=== PATIENT | female | born 1945 | race Caucasian/White ===

== ENCOUNTER 2021-09-17 11:47 | Outpatient (REF) | payer BC, SELFPAY ==
[2021-09-17 12:41] LABS: Basophils Absolute Auto 0.05 K/uL (0.00-0.30); Basophils Percent Auto 0.5 % (0.0-3.0); Eosinophils Absolute Auto 0.18 K/uL (0.00-0.50); Eosinophils Percent Auto 1.9 % (0.0-7.0); Hematocrit 36.1 % (33.0-51.0); Hemoglobin* 11.7 gm/dL (12.0-16.0); Immature Granulocytes Abs Auto 0.03 K/uL (0.00-0.30); Lymphocytes Percent Auto 15.7 % (20-44); Mean Corpuscular HGB Conc 32 gm/dL (32-36); Mean Corpuscular Hemoglobin 31 pg (26-34); Mean Corpuscular Volume 94 fL (80-100); Monocytes Percent Auto 4.3 % (0.0-11.0); Neutrophils Percent Auto 77.3 % (42.0-72.0); Platelet Count* 282 K/uL (140-440); RDW Coefficient of Variation % 13.8 % (11.5-15.5); Red Blood Count 3.84 m/uL (4.00-5.20); White Blood Count* 9.71 K/uL (4.50-11.00)
[2021-09-17 12:44] LABS: Slide Review Reflex No
== END 2021-09-17 11:48 | disposition home or self-care (01) ==
LOC: NPINS 11:47
PROVIDERS: PCP Family Medicine; Visit Provider Nurse Practitioner Adult Health
DX: R53.83 Other fatigue (principal)
CPT/HCPCS: 85025

== ENCOUNTER 2021-09-18 09:22 | Outpatient (REF) | payer BC, SELFPAY ==
[2021-09-18 09:39] LABS: Appearance Urine Cloudy (Clear); Bilirubin Urine Negative (Negative); Blood Urine 3+ (Negative); Color Urine Yellow (Yellow); Glucose Urine Negative (Negative); Ketones Urine Negative (Negative); Leukocyte Esterase Urine 3+ (Negative); Nitrite Urine Positive (Negative); Protein Urine Negative (Negative); Specific Gravity Urine 1.015 (1.000-1.030); Urobilinogen Urine 0.2 (0.2-1.0); pH Urine 5.5 (5.0-8.5)
[2021-09-18 10:45] LABS: Bacteria Urine Many; RBC Urine 25-50 (0-2); Squamous Epithelial Cell Urine Moderate (None-Few); WBC Urine >100 (0-5)
== END 2021-09-18 09:23 | disposition home or self-care (01) ==
LOC: NPINS 09:22
PROVIDERS: PCP Family Medicine; Visit Provider Nurse Practitioner Adult Health
DX: R53.83 Other fatigue (principal)
CPT/HCPCS: 81001; 87086; 87186

== ENCOUNTER 2021-10-01 12:31 | Outpatient (REF) | payer BC, SELFPAY ==
[2021-10-01 12:52] LABS: Appearance Urine Slightly Cloudy (Clear); Bilirubin Urine Negative (Negative); Blood Urine 3+ (Negative); Color Urine Red (Yellow); Glucose Urine Negative (Negative); Ketones Urine Negative (Negative); Leukocyte Esterase Urine 3+ (Negative); Nitrite Urine Negative (Negative); Protein Urine 1+ (Negative); Specific Gravity Urine 1.015 (1.000-1.030); Urobilinogen Urine 0.2 (0.2-1.0); pH Urine 6.5 (5.0-8.5)
[2021-10-01 12:54] LABS: Basophils Percent Auto 0.4 % (0.0-3.0); Eosinophils Percent Auto 1.6 % (0.0-7.0); Hematocrit 41.6 % (33.0-51.0); Hemoglobin* 13.2 gm/dL (12.0-16.0); Immature Granulocytes Abs Auto 0.04 K/uL (0.00-0.30); Mean Corpuscular HGB Conc 32 gm/dL (32-36); Mean Corpuscular Hemoglobin 30 pg (26-34); Mean Corpuscular Volume 96 fL (80-100); Monocytes Percent Auto 5.1 % (0.0-11.0); Neutrophils Percent Auto 81.6 % (42.0-72.0); Platelet Count* 290 K/uL (140-440); RDW Coefficient of Variation % 13.7 % (11.5-15.5); Red Blood Count 4.35 m/uL (4.00-5.20); White Blood Count* 13.04 K/uL (4.50-11.00)
[2021-10-01 13:04] LABS: Bacteria Urine Many; RBC Urine >100 (0-2); WBC Urine >100 (0-5)
[2021-10-01 13:06] LABS: Slide Review Reflex No
[2021-10-01 13:09] LABS: Albumin* 3.8 g/dL (3.3-5.0)
[2021-10-01 13:10] LABS: Chloride* 98 mmol/L (96-114); Potassium* 3.4 mmol/L (3.6-5.1); Sodium* 142 mmol/L (135-149)
[2021-10-01 13:12] LABS: Aspartate Amino Transferase* 21 U/L (12-35); Bilirubin Total* 0.4 mg/dL (0.1-1.5); Carbon Dioxide* 34 mmol/L (20-32); Creatinine* 0.8 mg/dL (0.5-1.5); Estimated Glomerular Filt Rate 76 ml/min
[2021-10-01 13:13] LABS: Alanine Aminotransferase* 11 U/L (4-35); Alkaline Phosphatase* 155 U/L (40-150); Blood Urea Nitrogen* 23 mg/dL (7-30); Calcium* 9.2 mg/dL (8.4-10.6); Glucose* 92 mg/dL (60-115); Magnesium* 1.5 mg/dL (1.5-2.6); Total Protein* 7.4 g/dL (6.0-8.3)
== END 2021-10-01 12:32 | disposition home or self-care (01) ==
LOC: NPINS 12:31
PROVIDERS: PCP Family Medicine; Visit Provider Nurse Practitioner Adult Health
DX: F05 Delirium due to known physiological condition (principal)
CPT/HCPCS: 80053; 81001; 83735; 84443; 85025; 87086; 87186

== ENCOUNTER 2022-04-11 23:31 | Outpatient (REF) | payer BC, SELFPAY ==
[2022-04-11 23:57] LABS: Appearance Urine Slightly Cloudy (Clear); Bilirubin Urine Negative (Negative); Blood Urine Trace-intact (Negative); Color Urine Yellow (Yellow); Glucose Urine Negative (Negative); Ketones Urine Negative (Negative); Leukocyte Esterase Urine Trace (Negative); Nitrite Urine Negative (Negative); Protein Urine 1+ (Negative); Specific Gravity Urine 1.015 (1.000-1.030); Urobilinogen Urine 0.2 (0.2-1.0)
[2022-04-12 00:05] LABS: Bacteria Urine Few; RBC Urine 25-50 (0-2); Squamous Epithelial Cell Urine Few (None-Few)
== END 2022-04-11 23:32 | disposition home or self-care (01) ==
LOC: NPINS 23:31
PROVIDERS: PCP Family Medicine; Visit Provider Family Medicine
DX: R33.9 Retention of urine, unspecified (principal)
CPT/HCPCS: 81001; 87086

== ENCOUNTER 2022-05-18 20:27 | Outpatient (REF) | payer BC, SELFPAY ==
[2022-05-19 09:04] LABS: PCR FLU A Negative PCR FLU A (Negative); PCR FLU B Negative PCR FLU B (Negative); SARS PCR* ND (Negative)
== END 2022-05-18 20:28 | disposition home or self-care (01) ==
LOC: LAB 20:27
PROVIDERS: PCP Family Medicine; Visit Provider Nurse Practitioner Adult Health
DX: J10.1 Influenza due to other identified influenza virus with other respiratory manifestations (principal)
CPT/HCPCS: 87631

== ENCOUNTER 2023-04-27 17:52 | Outpatient (REF) | payer BC, SELFPAY ==
[2023-04-27 18:24] LABS: Appearance Urine Clear (Clear); Bilirubin Urine Negative (Negative); Blood Urine 2+ (Negative); Color Urine Yellow (Yellow); Glucose Urine Negative (Negative); Ketones Urine Negative (Negative); Leukocyte Esterase Urine 1+ (Negative); Nitrite Urine Negative (Negative); Protein Urine Negative (Negative); Specific Gravity Urine 1.015 (1.000-1.030); Urobilinogen Urine 0.2 (0.2-1.0)
[2023-04-27 18:38] LABS: RBC Urine 0-2 (0-2)
== END 2023-04-27 17:53 | disposition home or self-care (01) ==
LOC: NPINS 17:52
PROVIDERS: PCP Family Medicine; Visit Provider Family Medicine
DX: R10.2 Pelvic and perineal pain (principal)
CPT/HCPCS: 81001; 87086; 87186

== ENCOUNTER 2023-07-16 13:42 | Outpatient (CLI) | payer BC, SELFPAY ==
--- NOTE | 2023-07-16 14:30 | CRLHL7_ITS ---
For Patients: As a result of the Century Cures Act, medical imaging exams and procedure reports are released immediately into your electronic medical record. You may view this report before your referring provider. If you have questions, please contact your health care provider. INDICATION: Post-laminectomy syndrome. Comparison 03/17/2021. Technique Sagittal T1, T2, and STIR sequences. Axial T1 and T2 weighted sequences. FINDINGS: Degenerative anterolisthesis of L1 on L2 measures approximate 4 mm. Otherwise, normal alignment. No acute fractures. Stable postoperative changes of diskectomy interbody fusion L2-3, L3-4, L4-5 and L5-S1 with posterior wagner and transpedicular screw fixation L2-S1. Stable fluid collection within the posterior soft tissues of the operative bed which likely represents a postop seroma. Stable chronic compression fracture and anterior wedging of the L1 vertebral body. Retropulsion of the posterior inferior corner vertebral body measuring approximately 5 millimeters in the AP dimension Lumbar spondylosis with multilevel disc degeneration facet arthropathy. T11-12: Disc degeneration posterior disc bulge. No narrowing of spinal canal. Spinal canal is decompressed by laminectomy. Facet arthropathy results in mild narrowing of bilateral foramina. T12-L1: Disc degeneration diffuse disc bulge. Mild narrowing of spinal canal. No neural foraminal narrowing. L1-2: Advanced disc degeneration loss disc height. Posterior disc bulge. Moderate narrowing of spinal canal. Mild to moderate narrowing of bilateral foramina. L2-3: Postoperative changes. No spinal canal or neural foraminal narrowing. L3-4: Postop changes. No narrowing of the spinal canal. No neural foraminal narrowing. L4-5: Postoperative changes. No narrowing of spinal canal. No neural foraminal narrowing. L5-S1: Postop changes. No narrowing of spinal canal. Allowing for artifact, there is mild narrowing of bilateral foramina. Degenerative changes of the SI joints. IMPRESSION: 1. Degenerative anterolisthesis of L1 on L2. 2. Otherwise normal alignment. No acute fractures. 3. Stable postoperative changes L2-3 through L5-S1. Stable fluid collection within the posterior soft tissues of the operative bed which likely represents a postoperative seroma. 4. Stable chronic compression fracture of L1 5. Lumbar spondylosis. 6. At T11-12, mild narrowing of the bilateral neural foramina 7. At T12-L1, mild narrowing of the spinal canal 8. At L1-2, moderate narrowing of the spinal canal. [id number] narrowing of the bilateral neural foramina 9. At L5-S1, mild narrowing of the bilateral neural foramina Dictated by Steven Bliss MD @ 07/17/2023 8:46:06 AM (Electronically Signed)
== END 2023-07-16 13:43 | disposition home or self-care (01) ==
PROVIDERS: PCP Family Medicine; Visit Provider Nurse Practitioner Family
DX: M96.1 Postlaminectomy syndrome, not elsewhere classified (principal); M48.56XA Collapsed vertebra, not elsewhere classified, lumbar region, initial encounter for fracture; M47.896 Other spondylosis, lumbar region; M51.24 Other intervertebral disc displacement, thoracic region; M51.25 Other intervertebral disc displacement, thoracolumbar region
CPT/HCPCS: 72148

== ENCOUNTER 2023-09-27 18:12 | Outpatient (REF) | payer BC, SELFPAY ==
[2023-09-27 18:52] LABS: Appearance Urine Clear (Clear); Bilirubin Urine Negative (Negative); Blood Urine 3+ (Negative); Color Urine Yellow (Yellow); Glucose Urine Negative (Negative); Ketones Urine Negative (Negative); Leukocyte Esterase Urine 3+ (Negative); Nitrite Urine Positive (Negative); Protein Urine 1+ (Negative); Urobilinogen Urine 0.2 (0.2-1.0); pH Urine 7.5 (5.0-8.5)
[2023-09-27 19:16] LABS: Bacteria Urine Moderate; WBC Urine 25-50 (0-5)
== END 2023-09-27 18:13 | disposition home or self-care (01) ==
LOC: NPINS 18:12
PROVIDERS: PCP Family Medicine; Visit Provider Nurse Practitioner Gerontology
DX: N39.0 Urinary tract infection, site not specified (principal)
CPT/HCPCS: 81001; 87086; 87186

== ENCOUNTER 2023-10-29 16:48 | Outpatient (REF) | payer BC, SELFPAY ==
[2023-10-29 17:09] LABS: Appearance Urine Clear (Clear); Bilirubin Urine Negative (Negative); Blood Urine 1+ (Negative); Color Urine Yellow (Yellow); Glucose Urine Negative (Negative); Ketones Urine Negative (Negative); Leukocyte Esterase Urine 1+ (Negative); Nitrite Urine Negative (Negative); Protein Urine Negative (Negative); Specific Gravity Urine 1.015 (1.000-1.030); Urobilinogen Urine 0.2 (0.2-1.0)
[2023-10-29 17:40] LABS: WBC Urine 0-2 (0-5)
== END 2023-10-29 16:49 | disposition home or self-care (01) ==
LOC: NPINS 16:48
PROVIDERS: PCP Family Medicine; Visit Provider Nurse Practitioner Gerontology
DX: R10.2 Pelvic and perineal pain (principal)
CPT/HCPCS: 81001; 81003; 87086; 87186

== ENCOUNTER 2023-11-23 12:14 | Outpatient (CLI) | payer BC, SELFPAY | END 2023-11-23 12:15 | disposition home or self-care (01) | LOC: AMB 11-26 01:27 | PROVIDERS: PCP Family Medicine; Visit Provider Emergency Medicine | DX: T83.010A Breakdown (mechanical) of cystostomy catheter, initial encounter (principal) | CPT/HCPCS: A0425; A0428 ==

== ENCOUNTER 2023-11-23 12:42 | Emergency (ER) | payer BC, SELFPAY ==
[2023-11-23 12:53] VITALS: BP 157/74; PULSE 74; RESP 18; TEMP 36.6; O2SAT 98; BMI 37.2
--- NOTE | 2023-11-23 13:11 | ED_ITS ---
HPI - General Adult General Chief complaint: Urogenital Problems, Female Stated complaint: Catheter problem Time Seen by Provider: 11/23/23 12:48 Source: patient Mode of arrival: ambulatory Limitations: no limitations History of Present Illness HPI narrative: 78-year-old female coming in today requesting that her suprapubic catheter be changed. Patient does live in a snf where the nursing staff were alok ble to changes today. She gets it changed monthly. She denies any other concerns today. Patient has a history of spinal stenosis and difficulty with mobility and that is the reason why she has suprapubic catheter in place. She states that has been present for several years and she has not had any issues. Related Data Allergies Allergy/AdvReac Type Severity Reaction Status Date / Time No Known Drug Allergies Allergy Verified 11/23/23 12:53 Review of Systems Status of ROS: Reports: 6 or more systems reviewed and unremarkable except as noted in History and below Exam Narrative: Exam Narrative: Obese, well-developed patient in no acute distress. Alert and oriented. Answers questions appropriately. Mood and affect are appropriate. Thoughts are goal oriented and rational. No tangential or magical thinking noted. Patient speaks in full sentences without needing to catch her breath. She does not appear ill or toxic. HEENT: Normocephalic atraumatic. Pupils are equally round reactive to light. Extraocular muscles are intact. Conjunctivae are moist without any icterus noted. Moist mucous membranes. Abdomen soft and nontender with normal bowel sounds. No guarding rebound. Suprapubic catheter sitting in the entrance. No evidence of infection. Const: Vital Signs, click to edit/add: Vital Signs - 24 hr 11/23/23 12:53 Temperature 97.8 F Pulse Rate [Pulse Oximeter] 74 Respiratory Rate 18 Blood Pressure [Ri ght Upper Arm] 157/74 H Pulse Oximetry 98 Oxygen Delivery Me thod Room Air Course Course ED Course: Nursing staff able to put in in 12 gauge without difficulty. Vital Signs Vital signs: Initial Vital Signs Temperature 97.8 F 11/23/23 12:53 Temperature Source Temporal Artery Scan 11/23/23 12:53 Pulse Rate 74 11/23/23 12:53 Respiratory Rate 18 11/23/23 12:53 Blood Pressure 157/74 H 11/23/23 12:53 Blood Pressure Mean 101 11/23/23 12:53 Pulse Oximetry 98 11/23/23 12:53 Oxygen Delivery Method Room Air 11/23/23 12:53 Vital Signs Temperature 97.8 F 11/23/23 12:53 Pulse Rate 74 11/23/23 12:53 Respiratory Rate 18 11/23/23 12:53 Blood Pressure 157/74 H 11/23/23 12:53 Pulse Oximetry 98 11/23/23 12:53 Oxygen Delivery Method Room Air 11/23/23 12:53 Temperature 97.8 F 11/23/23 12:53 Pulse Rate 74 11/23/23 12:53 Respiratory Rate 18 11/23/23 12:53 Blood Pressure 157/74 H 11/23/23 12:53 Pulse Oximetry 98 11/23/23 12:53 Oxygen Delivery Method Room Air 11/23/23 12:53 Medical Decision Making MDM Narrative Medical decision making narrative: Suprapubic catheter changed today in the ED. Patient will follow-up with Urology for a more proper sized catheter. Discharge Plan Discharge Clinical Impression: Suprapubic catheter dysfunction Patient Disposition: Home w/ Parent or Adult Condition: Improved Additional Instructions: Follow-up with urology team. Follow Up/Referrals: Be John MD [Primary Care Provider] - Stand Alone [facility]: [facility] Inst[facility]
== END 2023-11-23 14:44 | disposition home or self-care (01) ==
PROVIDERS: Emergency Provider Family Medicine; PCP Family Medicine
DX: T83.098A Other mechanical complication of other urinary catheter, initial encounter (principal)
CPT/HCPCS: 51702; 99283; 99284

== ENCOUNTER 2023-11-23 14:37 | Outpatient (CLI) | payer BC, SELFPAY | END 2023-11-23 14:38 | disposition home or self-care (01) | LOC: AMB 11-26 01:32 | PROVIDERS: PCP Family Medicine; Visit Provider Emergency Medicine | DX: R33.9 Retention of urine, unspecified (principal); Z46.6 Encounter for fitting and adjustment of urinary device | CPT/HCPCS: A0425; A0427; A0428 ==

== ENCOUNTER 2024-03-14 16:20 | Outpatient (REF) | payer BC, SELFPAY ==
[2024-03-14 16:35] LABS: Bilirubin Urine Negative (Negative); Blood Urine 3+ (Negative); Glucose Urine Negative (Negative); Ketones Urine Negative (Negative); Leukocyte Esterase Urine 1+ (Negative); Nitrite Urine Negative (Negative); Protein Urine 2+ (Negative); Urobilinogen Urine 0.2 (0.2-1.0); pH Urine 5.5 (5.0-8.5)
[2024-03-14 16:58] LABS: Appearance Urine Clear (Clear); Color Urine Yellow (Yellow)
[2024-03-14 17:26] LABS: Bacteria Urine Moderate; Squamous Epithelial Cell Urine Few (None-Few)
== END 2024-03-14 16:21 | disposition home or self-care (01) ==
LOC: NPINS 16:20
PROVIDERS: PCP Family Medicine; Visit Provider Nurse Practitioner Gerontology
DX: R10.2 Pelvic and perineal pain (principal)
CPT/HCPCS: 81001; 87086

== ENCOUNTER 2024-06-16 10:28 | Outpatient (REF) | payer BC, SELFPAY ==
[2024-06-16 11:17] LABS: Appearance Urine Cloudy (Clear); Bilirubin Urine Negative (Negative); Blood Urine 3+ (Negative); Color Urine Dark yellow (Yellow); Glucose Urine Negative (Negative); Ketones Urine Negative (Negative); Leukocyte Esterase Urine 1+ (Negative); Nitrite Urine Negative (Negative); Protein Urine Trace (Negative); Urobilinogen Urine 0.2 (0.2-1.0)
[2024-06-16 11:33] LABS: Bacteria Urine Moderate; RBC Urine >100 (0-2); Squamous Epithelial Cell Urine Few (None-Few)
== END 2024-06-16 10:29 | disposition home or self-care (01) ==
LOC: NPINS 10:28
PROVIDERS: PCP Family Medicine; Referring Provider Nurse Practitioner Gerontology; Visit Provider Nurse Practitioner Gerontology
DX: R39.82 Chronic bladder pain (principal)
CPT/HCPCS: 81001; 87086

== ENCOUNTER 2024-06-28 15:43 | Outpatient (CLI) | payer BC, SELFPAY | END 2024-06-28 15:44 | disposition home or self-care (01) | LOC: AMB 06-29 09:23 | PROVIDERS: PCP Family Medicine; Visit Provider Emergency Medicine Emergency Medical Services | DX: R44.3 Hallucinations, unspecified (principal); R41.82 Altered mental status, unspecified; R53.1 Weakness; R11.2 Nausea with vomiting, unspecified | CPT/HCPCS: A0425; A0427 ==

== ENCOUNTER 2024-06-28 16:03 | Inpatient (IN) | payer BC, SELFPAY ==
[2024-06-28] VITALS (9 sets, daily range): BP systolic 99–143; BP diastolic 59–103; PULSE 75–88; RESP 12–20; TEMP 36.3–36.6; O2SAT 97–100; BMI 29.7
--- NOTE | 2024-06-28 16:20 | ED.GENADULT ---
HPI - General Adult General Date Seen: 06/28/24 Chief complaint: Unspecified Complaint, Adult Stated complaint: Elevated white blood cell Time Seen by Provider: 06/28/24 16:20 History of Present Illness HPI narrative: 78 yo F brought to the ER today by EMS from her halfway because she has an elevated white count (13). History from the paramedics who brought her in is that she has been sick with nausea and vomiting for the past few days. She has also been a little bit more lethargic and less alert than normal. History from EMS: note that she has been having trouble for the past several days with nausea and vomiting. v History is obtained in part from the patient also supplemented by hers daughter and son-in-law She has a complex past medical history including chronic low back pain on OxyContin and oxycodone. It sounds like because of her lethargy her doctors have taken her off of her OxyContin for the past few days but she still on oxycodone 5-10 mg p.r.n. every 2 hours. She also has chronic spinal stenosis and nerve damage from her spinal problem so she is very weak in her lower extremities and she relies on wheelchair and nursing staff to help her transfer. She also has neurogenic bladder with a chronic indwelling suprapubic catheter. It typically eats changed about once per month and was changed most recently a few weeks ago. She also gets frequent UTIs and her family thinks she was recently on antibiotic for UTI Patient describes at least 3 days for nausea and vomiting with mostly white emesis. No bloody or bilious emesis. She does have chronic diarrhea which is not changed from baseline. No recent constipation. Long with vomiting she is having some generalized abdominal pain. She has also had a bit of a cough for couple of days. No fever. She has been a little bit less active and more confused than normal. Typically which she gets a UTI she gets quite confused and might even be paranoid or hallucinating. She has not been that confused for the past couple of days. She had labs done at her halfway yesterday and she had a white count of 13. She also had a BMP which showed a BUN of 36 and a creatinine of 1.36. Blood sugar was 52 yesterday. She does not have a history of diabetes and does not take insulin. Because she had ongoing lethargy, her halfway center into the ER today. She also has some bed sores on her sacrum. She says that these are open and sore. She is not exactly sure how long they have been there but sounds like they have been present off and on chronically. It does not sound like she has ever needed surgery or debridement for infected bed sores in the past. Previous abdominal surgery includes appendectomy and hysterectomy. She is having abdominal pain and vomiting. Family also notes that she has had about a 50 lb unintentional weight loss over the past few months. Patient says that she just has had a poor appetite and does not want eat. She typically lose is about 2 lb per week. Her doctors have been adjusting her thyroid medications and her diuretics for the past several weeks. Related Data Home Medications ?Medication ?Instructions ?Recorded ?Confirmed acetaminophen 500 mg tablet 1,000 mg PO TID 06/28/24 06/28/24 diclofenac sodium 1 % topical gel 2 g topical QID PRN 06/28/24 06/29/24 duloxetine 60 mg capsule,delayed 60 mg PO DAILY 06/28/24 06/28/24 release gabapentin 300 mg capsule 300 mg PO TID 06/28/24 06/29/24 levothyroxine 112 mcg tablet 112 mcg PO DAILY 06/28/24 06/28/24 (Euthyrox) levothyroxine 150 mcg tablet 150 mcg PO DAILY 06/28/24 06/28/24 oxybutynin chloride 5 mg 5 mg PO DAILY 06/28/24 06/28/24 tablet,extended release 24 hr oxycodone 5 mg tablet 10 mg PO Q6H PRN 06/28/24 06/28/24 pantoprazole 40 mg tablet,delayed 40 mg PO DAILY 06/28/24 06/28/24 release polyethylene glycol 3350 17 17 g PO DAILY 06/28/24 06/28/24 gram/dose oral powder potassium chloride 20 mEq 40 meq PO BID 06/28/24 06/28/24 tablet,extended release sennosides 8.6 mg tablet (senna) 25.8 mg PO BID 06/28/24 06/28/24 torsemide 10 mg tablet 30 mg PO DAILY 06/28/24 06/28/24 triamcinolone acetonide 0.1 % applic topical 06/28/24 topical cream white petrolatum-mineral oil 80 ophthalmic (eye) 06/28/24 %-20 % eye ointment (Soothe Night Time Lubricant) diltiazem HCl 240 mg capsule,24 240 mg PO DAILY 06/29/24 06/29/24 hr,extended release Allergies Allergy/AdvReac Type Severity Reaction Status Date / Time No Known Drug Allergies [facility]ergy Verified 06/28/24 16:19 [facility] Medical History (Updated 06/29/24 @ 14:43 by Robina Leon PA-C) Malnutrition ?E46 - Unspecified protein-calorie malnutrition (ICD-10) Presence of suprapubic catheter ?Z93.59 - Other cystostomy status (ICD-10) Chronic pain ?G89.29 - Other chronic pain (ICD-10) Depression ?F32.A - Depression, unspecified (ICD-10) Spinal stenosis of lumbar region ?M48.061 - Spinal stenosis, lumbar region without neurogenic claudication (ICD-10) Decubitus ulcer of sacral area ?L89.159 - Pressure ulcer of sacral region, unspecified stage (ICD-10) Neurogenic bladder ?N31.9 - Neuromuscular dysfunction of bladder, unspecified (ICD-10) Visual loss ?H54.7 - Unspecified visual loss (ICD-10) Paraplegia ?G82.20 - Paraplegia, unspecified (ICD-10) Surgical History (Updated 06/29/24 @ 07:11 by Yung Diaz MD) History of hysterectomy ?Z90.710 - Acquired absence of both cervix and uterus (ICD-10) Hx of appendectomy ?Z90.49 - Acquired absence of other specified parts of digestive tract (ICD-10) H/O lumbosacral spine surgery ?Z98.890 - Other specified postprocedural states (ICD-10) Social History Narrative: Lives at [address] [place] [address]. Nonambulatory for at least 3 years. Secondary to spinal stenosis. Suprapubic catheter due to neurogenic bladder. Code status is DNR. Daughter Milli manriquez ir is healthcare power of corporate associate attorney. What is your current living situation?: I presently have a place to live Problems where you live: no known problems Problems where you live details: n/a In the past 12 months, utilities in danger of being shut off: no In past 12 months, lack of transportation kept you from medical appts, meetings, work, or getting things needed for daily living: no In the past 12 mos, have been you worried that your food would run out before you had money to buy more?: never true In the past 12 mos, the food you bought just didn't last and you didn't have money to buy more?: never true Highest level of school completed/degree received: high school graduate Smoking Status: Never smoker Do you use any of these nicotine containing products: None How often do you have a drink containing alcohol: never AUDIT-C Alcohol total score: 0 Non-prescribed substance use: denies use Caffeine: No How often does anyone, including family, friends and others, physically hurt you: never How often does anyone, including family, friends and others, insult or talk down to you: never How often does anyone, including family, friends and others, threaten you with harm: never How often does anyone, including family, friends and others, scream or curse at you: never Exam Narrative: Exam Narrative: Primary Survey: A- patent. Speaking clearly. Phonation normal. No stridor. B- breathing easily. Lung sounds clear and equal. Oxygen saturation normal on room air C- no active bleeding. Blood pressure stable. Symmetric pulses and cap refill in 4 extremities. D- alert and oriented x3. GCS 15. No focal deficits. Constitutional: Appears well-developed and well-nourished. Alert. Conversant but somewhat vague historian and often times not completely clear with her history. Her daughter and son-in-law help supplement her history. HENT: Head: Atraumatic. Nose: Nose normal. Mouth/Throat: Oral mucosa is clear but mucous membranes are dry. no trismus. Pharynx normal. Tonsils symmetric. No tonsillar enlargement, erythema, or exudate. Eyes: Conjunctivae normal. EOM normal. Pupils equal, round, and reactive to light. No scleral icterus. Neck: Normal range of motion. Neck supple. No tracheal deviation present. Cardiovascular: Normal rate, regular rhythm. No gallop. No friction rub. No murmur heard. Symmetric radial and PT artery pulses Pulmonary/Chest: Requires assistance to sit up for lung exam. Lungs are clear. Effort normal. No stridor. No respiratory distress. No wheezes. No rales. No rhonchi . No tenderness. Abdominal: Soft. Bowel sounds normal. No distension. No mass. Diffuse tenderness. No rebound. No guarding. Suprapubic catheter. Skin around the catheter looks good. Catheter is draining some fairly clear yellowish urine. Musculoskeletal: RUE: Normal range of motion. No tenderness. No deformity LUE: Normal range of motion. No tenderness. No deformity RLE: Normal range of motion. 2+ edema. No tenderness. No deformity LLE: Normal range of motion. 2+ edema. No tenderness. No deformity Neurological: Alert and oriented to person, place, and date but she is seems little bit confused and is a poor historian. She has 5/5 strength in the upper extremities but is weak in both lower extremities (chronically so). She is barely able to lift either reviewed off the bed. She requires is the sit up because of her chronic weakness and her spinal cord problems. No new focal deficits.. Normal strength. CN II-VII intact. No new sensory deficit. GCS eye subscore is 4. GCS verbal subscore is 5. GCS motor subscore is 6. Normal upper extremity coordination Skin: She does have stage I decubitus ulcers on her sacrum affecting both sides. I do not see any significant surrounding erythema, purulent drainage, malodorous discharge. No signs of any tunneling sores. Skin is warm and dry. Family thinks that she looks a little bit pale or yellow. She has not jaundice. No rash noted. No pallor. Normal capillary refill. Psychiatric: Normal mood. Normal affect. Polite. Const: Vital Signs, click to edit/add: Vital Signs - 24 hr 06/28/24 16:10 Temperature 97.4 F L Pulse Rate [Left P ulse Oximeter] 83 Respiratory Rate 20 Blood Pressure [Ri ght Upper Arm] 113/66 Pulse Oximetry 97 Oxygen Delivery Me thod Room Air Course Vital Signs Vital signs: Initial Vital Signs Temperature 97.4 F L 06/28/24 16:10 Temperature Source Temporal Artery Scan 06/28/24 16:10 Pulse Rate 83 06/28/24 16:10 Pulse Rhythm Regular 06/28/24 16:10 Pulse Strength 3+ Normal 06/28/24 16:10 Respiratory Rate 20 06/28/24 16:10 Blood Pressure 113/66 06/28/24 16:10 Blood Pressure Mean 81 06/28/24 16:10 Blood Pressure Position Sitting 06/28/24 16:10 Pulse Oximetry 97 06/28/24 16:10 Oxygen Delivery Method Room Air 06/28/24 16:10 Vital Signs Temperature 97.4 F L 06/28/24 16:10 Pulse Rate 83 06/28/24 16:10 Respiratory Rate 20 06/28/24 16:10 Blood Pressure 113/66 06/28/24 16:10 Pulse Oximetry 97 06/28/24 16:10 Oxygen Delivery Method Room Air 06/28/24 16:10 Temperature 97.6 F 06/30/24 07:00 Pulse Rate 92 06/30/24 07:00 Respiratory Rate 16 06/30/24 07:00 Blood Pressure 125/60 06/30/24 07:00 Pulse Oximetry 100 06/30/24 07:00 Oxygen Delivery Method Room Air 06/30/24 07:00 Medications Administered Medications: Generic Name Dose Route Start Last Admin Trade Name Cjq PRN Reason Stop Dose Admin Acetaminophen 1,000 mg 06/28/24 22:07 06/30/24 08:55 Acetaminophen 500 Mg Tablet PO 1,000 mg TID REGINA Administration Diltiazem HCl 120 mg 06/29/24 09:00 06/30/24 08:54 Diltiazem 120 Mg Cap.Er.24h PO 120 mg DAILY REGINA Administration Duloxetine HCl 60 mg 06/29/24 09:00 06/30/24 08:54 Duloxetine [address] PO 60 mg DAILY REGINA Administration Gabapentin 300 mg 06/29/24 09:00 06/30/24 08:55 Gabapentin 300 Mg Capsule PO 300 mg DAILY REGINA Administration Lactated Ringer's 1,000 mls @ 125 mls/hr 06/28/24 22:20 06/30/24 02:13 Lactated Ringers 1000 Ml IV 35 mls/hr .Q8H REGINA Administration Ceftriaxone Sodium 1 gm/ 100 mls @ 200 mls/hr 06/30/24 08:15 06/30/24 08:52 Sodium Chloride IVPB 200 mls/hr Q24H REGINA Administration Levothyroxine Sodium 112 mcg 06/29/24 06:30 06/30/24 06:36 Levothyroxine 112 Mcg Tablet PO 112 mcg 0630 REGINA Administration Omeprazole 40 mg 06/29/24 09:00 06/30/24 08:53 Omeprazole [address] PO 40 mg DAILY REGINA Administration Oxybutynin Chloride 5 mg 06/29/24 09:00 06/30/24 08:56 Oxybutynin Chloride 5 Mg Tab.Er.24 PO 5 mg DAILY REGINA Administration Oxycodone HCl 10 mg 06/28/24 21:43 06/29/24 18:33 Oxycodone 5 Mg Tablet PO 5 mg Q6H PRN Administration Oxycodone HCl 10 mg 06/28/24 22:00 06/29/24 21:17 Oxycodone (Cr) 10 Mg Tab.Er.12h PO 10 mg Q12H REGINA Administration Polyethylene Glycol 17 gm 06/29/24 09:00 06/30/24 08:56 Polyethylene Glycol 3350 17 Gm Pack PO Not Given DAILY REGINA Sennosides 3 tab 06/28/24 22:12 06/30/24 08:57 Sennosides 1 Tab Tablet PO Not Given BID REGINA Sodium Chloride 5 ml 06/29/24 09:00 06/30/24 08:57 Sodium Chloride 0.9 % (Flush) 10 Ml Syringe IVF 5 ml BID REGINA Administration Discontinued Medications Generic Name Dose Route Start Last Admin Trade Name Freq PRN Reason Stop Dose Admin Bupivacaine HCl 30 ml 06/29/24 15:29 06/29/24 13:44 Bupivacaine 0.25% 30 Ml INJECTION 06/29/24 15:30 15 ml ONCE ONE Administration Cefazolin Sodium 0 gm 06/29/24 13:30 06/29/24 13:30 Cefazolin 1 Gm Inj IVP 06/29/24 13:31 1 gm ONCE ONE Administration Enoxaparin Sodium 30 mg 06/28/24 21:32 06/28/24 22:42 Enoxaparin 30 Mg/0.3ml Inj SUBCUT 06/28/24 21:33 Not Given ONCE ONE Sodium Chloride 1,000 mls @ 1,000 mls/hr 06/28/24 17:00 06/28/24 18:32 0.9 % Sodium Chloride 1000 Ml IV 06/28/24 17:59 Infused .Q1H REGINA Infusion Ceftriaxone Sodium 1 gm/ 100 mls @ 200 mls/hr 06/28/24 19:03 06/28/24 20:20 Sodium Chloride IVPB 06/28/24 19:04 Infused ONCE ONE Infusion Piperacillin Sod/Tazobactam 100 mls @ 200 mls/hr 06/28/24 19:45 06/28/24 20:19 Sod 4.5 gm/ Sodium Chloride IVPB 200 mls/hr Q6H REGINA Administration Lactated Ringer's 1,000 mls @ 1,000 mls/hr 06/28/24 20:19 06/28/24 23:40 Lactated Ringers 1000 Ml IV 06/28/24 21:18 Infused .Q1H ONE Infusion Piperacillin Sod/Tazobactam 100 mls @ 200 mls/hr 06/29/24 02:00 06/29/24 10:50 Sod 2.25 gm/ Sodium Chloride IVPB Infused Q6H REGINA Infusion Iopamidol 50 ml 06/29/24 15:29 06/29/24 14:10 Iopamidol 50 Ml Vial INJECTION 06/29/24 15:30 10 ml ONCE ONE Administration Lidocaine HCl 6 ml 06/28/24 16:50 06/28/24 17:31 Lidocaine Hcl 2 % Jelly (Top) Sterile UR 6 ml ONCE PRN Administration Lidocaine/Epinephrine 20 ml 06/29/24 15:29 06/29/24 13:44 Lidocaine 1%-Epi 1:100,000 INFILTRATI 06/29/24 15:30 15 ml ONCE ONE Administration Sodium Chloride 50 ml 06/29/24 15:29 06/29/24 14:10 0.9% Sodium Chl 50 Ml Vial INJECTION 06/29/24 15:30 10 ml ONCE ONE Administration Medical Decision Making MDM Narrative Medical decision making narrative: Pleasant 78-year-old female brought to the ER today by EMS from her halfway because she has been vomiting for the past couple of days and has a little bit more lethargic than normal. She had a white count of 13 on labs yesterday so suspicion is possible infection. 1. Infectious Disease: Patient had a white count of 13 yesterday. She is not febrile, tachycardic. Lactic is normal. Although she does have UTI, no definitive evidence for sepsis for septic shock yet. Labs today here in the ER confirm white count elevated and up to 14 today. We undertook an evaluation for sources of infection. Blood cultures are drawn and pending. We changed her suprapubic catheter to get the most sterile possible sample. Urinalysis shows 10-25 WBC, 5-10 RBC, 3+ leukocyte esterase and many bacteria. I think this could be consistent with possible acute UTI. Based on most recent urine culture from 06/16/2024 which grew E coli. Please see the lab results from to get full sensitivity data. Will start the patient on Rocephin for UTI. She does have some superficial stage I decubitus ulcers on her sacrum but these do not appear to be actively infected her surrounded by cellulitis. I do not see any sign of abscess or necrotizing infection there. She has had of a report of a recent cough. She is not coughing here in the ER and is not hypoxic. She had a COVID/i influenza swab a couple of days ago that was negative. Chest x-ray today is negative by my read. 2. She is having vomiting for the past few days and also abdominal pain. She is significantly tender, predominantly in in the upper abdomen but also in the left side. She has had previous appendectomy and hysterectomy. Differential here is broad including cholecystitis, choledocholithiasis, pancreatitis, diverticulitis, colitis, bowel obstruction, intra-abdominal abscess, kidney stone, pyelonephritis among others.. Laboratory workup shows white count of 14. Total bilirubin is normal at 1.1. AST is mildly abnormal at 50 (previously was 21 in 2021). ALT is normal at 26. Alk-phos is elevated to 226 (previously was 150 in 2021). Lipase is elevated to 411 CT scan shows distension of the gallbladder but no definite other signs of for cholecystitis such as wall thickening, pericholecystic fluid. CT scan also shows possible splenic infarcts. CT scan also shows wall thickening of the rectosigmoid colon which may reflect mild colitis. Will add on C diff and stool culture and broaden antibiotics. 3. With vomiting and confusion, head CT is obtained and shows no acute abnormality. 4. Renal. She has been vomiting for the past few days. Labs show BUN elevated at 34 and creatinine up to 1.7 today. Prior creatinine from 2021 was normal at 0.8. Suspect this acute kidney injuries probably due to dehydration. 5. Hematologic. She has mild anemia with hemoglobin 11.8. No report of any recent bleeding. Lab Data Labs: Lab Results 06/28/24 06/28/24 06/28/24 Range/Units 16:52 17:22 21:26 WBC 14.06 H (4.50-11.00) K/uL RBC 3.54 L (4.00-5.20) m/uL Hgb 11.8 L (12.0-16.0) gm/dL Hct 35.9 (33.0-51.0) % MCV 101 H (80-100) fL MCH 33 (26-34) pg MCHC 33 (32-36) gm/dL RDW Coeff of Marlene 14.5 (11.5-15.5) % Plt Count 149 (140-440) K/uL Neut % (Auto) 79.0 H (42.0-72.0) % Lymph % (Auto) 12.5 L (20-44) % Mayes % (Auto) 7.0 (0.0-11.0) % Eos % (Auto) 0.3 (0.0-7.0) % Baso % (Auto) 0.4 (0.0-3.0) % Neut # (Auto) 11.10 H (1.7-7.0) K/uL Lymph # (Auto) 1.80 (0.90-2.90) K/uL Mayes # (Auto) 1.00 H (0.00-0.90) K/UL Eos # (Auto) 0.00 (0.00-0.50) K/uL Baso # (Auto) 0.10 (0.00-0.30) K/uL Abs Immat Gran (auto) 0.10 (0.00-0.30) K/uL Imm/Tot Granulo (auto) 0.8 % Sodium 135 (135-149) mmol/L Potassium 4.6 (3.6-5.1) mmol/L Chloride 104 (96-114) mmol/L Carbon Dioxide 19 L (20-32) mmol/L Anion Gap 12 (7-15) mEq/L BUN 34 H (7-30) mg/dL Creatinine 1.7 H (0.5-1.5) mg/dL Estimated Creat Clear 19.59 Estimated GFR 31 ml/min Glucose 81 (60-115) mg/dL Lactate 1.5 (0.5-1.9) mmol/L Calcium 9.1 (8.4-10.6) mg/dL Magnesium 1.9 (1.5-2.6) mg/dL Total Bilirubin 1.0 (0.1-1.5) mg/dL Direct Bilirubin 0.7 H (0.0-0.5) mg/dL AST 50 H (12-35) U/L ALT 26 (4-35) U/L Alkaline Phosphatase 226 H (40-150) U/L C-Reactive Protein 1.2 H (0.5-1.0) mg/dL Total Protein 6.6 (6.0-8.3) g/dL Albumin 3.4 (3.3-5.0) g/dL Lipase 411 H (23-300) U/L TSH 0.099 L (0.270-4.200) uIU/mL Free T4 2.43 H (0.70-1.85) ng/dL Urine Color Yellow (Yellow) Urine Appearance Clear (Clear) Urine pH 5.5 (5.0-8.5) Ur Specific [place] 1.025 (1.000-1.030) Urine Protein 1+ A (Negative) Urine Glucose (UA) Negative (Negative) Urine Ketones Negative (Negative) Urine Blood 3+ A (Negative) Urine Nitrite Negative (Negative) Urine Bilirubin Negative (Negative) Urine Urobilinogen 0.2 (0.2-1.0) Ur Leukocyte Esterase 3+ A (Negative) Urine RBC 5-10 A (0-2) Urine WBC 10-25 A (0-5) Ur Squamous Epith Cells Few (None-Few) Urine Bacteria Many A (None) Stl C. diff Tox B Gene Negative (Negative) Stl C. diff [id number] PRESUMPTIVE NEGATIVE (Negative) Imaging Data CT scan - head: Attestation: I have reviewed the pertinent imaging results. Radiologist's impression: IMPRESSION: 1. No acute intracranial abnormality. 2. Moderate generalized volume loss. Chronic deep white matter small vessel ischemic changes Chest x-ray: Attestation: I have reviewed the pertinent imaging results. Radiologist's impression: IMPRESSION: No evidence of an acute pulmonary process. CT scan - abdomen: Attestation: I have reviewed the pertinent imaging results. Radiologist's impression: IMPRESSION: 1. Small areas of wedge-shaped subcapsular hypoenhancement of the spleen, worrisome for small splenic infarcts. 2. Distended gallbladder. No significant pericholecystic fluid. Correlate clinically for any signs/symptoms of early acute cholecystitis. 3. Mild wall thickening of the rectosigmoid colon, may reflect mild colitis. Recommend correlation with routine colonoscopy/any recent colonoscopy results. 4. Additional incidental findings as above. ECG Data Attestation: I personally reviewed and interpreted this ECG as follows: Interpretation: Normal sinus rhythm with first-degree AV block Rate: 77 NJ: 260 QRS axis: Normal axis. Q-waves in leads V1, V2, lead 3, lead AVF ST segment/T wave: No ST segment elevation or depression. Nonspecific T-wave flattening in all leads. Artifact in lead V5. QTc: 407 Discharge Plan Discharge Clinical Impression: Vomiting, Acute kidney injury, Urinary tract infection, Infarction of spleen, Colitis, Abnormal serum level of lipase Patient Disposition: Admitted As Observation
--- NOTE | 2024-06-28 16:51 | CRLHL7_ITS ---
For Patients: As a result of the Cures Act, medical imaging exams and procedure reports are released immediately into your electronic medical record. You may view this report before your referring provider. If you have questions, please contact your health care provider. INDICATION: Vomiting, lethargy. TECHNIQUE: Chest 2 views. COMPARISON: None. FINDINGS: Cardiovascular and mediastinum: Heart size and vasculature are normal in caliber and appearance. Lungs and pleural spaces: No focal consolidation, pleural effusion, or pneumothorax. Bones and soft tissues: Partially imaged spinal fusion in the lumbar spine. 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 IMPRESSION: No evidence of an acute pulmonary process. Dictated by Fermin Lopez MD @ 06/28/2024 7:03:15 PM (Electronically Signed)
--- NOTE | 2024-06-28 16:51 | CRLHL7_ITS ---
For Patients: As a result of the Century Cures Act, medical imaging exams and procedure reports are released immediately into your electronic medical record. You may view this report before your referring provider. If you have questions, please contact your health care provider. INDICATION: Abdominal pain, vomiting, leukocytosis. TECHNIQUE: CT abdomen and pelvis acquired with 75 mL Isovue 370 IV contrast. COMPARISON: None available. FINDINGS: Lower chest: No focal consolidation. Liver: Diffuse hepatic steatosis. No suspicious focal hepatic lesion. Gallbladder and bile ducts: Hydropic gallbladder. No calcified gallstones. No significant pericholecystic fluid. Pancreas: Unremarkable. Spleen: Small areas of wedge-shaped subcapsular hypoenhancement. Adrenal glands: Unremarkable. Kidneys: Kidneys enhance symmetrically, without hydronephrosis. Too small to characterize hypodense bilateral renal lesions. Retroperitoneum: No lymphadenopathy. Bowel and mesentery: Bowel is not obstructed. No significant ascites, no pneumoperitoneum. Mild wall thickening of the rectosigmoid colon. Moderate-sized hiatal hernia. Bladder: Decompressed, in the presence of a suprapubic catheter. Reproductive organs: Post hysterectomy. Pelvic lymph nodes: No lymphadenopathy. Vessels: Extensive calcified and noncalcified atherosclerotic plaque throughout the abdominal aorta. Abdominal wall: No acute abdominal wall abnormality. Bones: Severe multilevel degenerative changes of the spine. Bones are diffusely osteopenic. Right hip arthroplasty. Postsurgical changes of the lumbar spine. IMPRESSION: 1. Small areas of wedge-shaped subcapsular hypoenhancement of the spleen, worrisome for small splenic infarcts. 2. Distended gallbladder. No significant pericholecystic fluid. Correlate clinically for any signs/symptoms of early acute cholecystitis. 3. Mild wall thickening of the rectosigmoid colon, may reflect mild colitis. Recommend correlation with routine colonoscopy/any recent colonoscopy results. 4. Additional incidental findings as above. Please note that all CT scans at this facility use dose modulation, iterative reconstruction, and/or weight-based dosing when appropriate to reduce radiation dose to as low as reasonably achievable. Dictated by Dulce Tuttle MD @ 06/28/2024 7:23:59 PM (Electronically Signed)
--- NOTE | 2024-06-28 16:51 | CRLHL7_ITS ---
For Patients: As a result of the Century Cures Act, medical imaging exams and procedure reports are released immediately into your electronic medical record. You may view this report before your referring provider. If you have questions, please contact your health care provider. INDICATION: Headache. Leukocytosis. Comparison 02/20/2021. TECHNIQUE: Noncontrast CT head. FINDINGS: Moderate generalized volume loss. Patchy low-attenuation change within the white matter consistent with chronic deep white matter small ischemic changes. Benign calcification the bilobed basal ganglia. No intracranial hemorrhage. No acute infarct. No midline shift. No abnormal ventricular dilatation. Normal calvarium and skull base. Visualized paranasal sinuses mastoid air cells are clear. Normal orbits bilaterally. IMPRESSION: 1. No acute intracranial abnormality. 2. Moderate generalized volume loss. Chronic deep white matter small vessel ischemic changes Please note that all CT scans at this facility use dose modulation, iterative reconstruction, and/or weight-based dosing when appropriate to reduce radiation dose to as low as reasonably achievable. Dictated by Steven Bliss MD @ 06/28/2024 7:03:34 PM (Electronically Signed)
[2024-06-28] MEDS: 0.9 % SODIUM CHLORIDE 1000 ml 1,000 ML IV (17:09)
--- OUTSIDE RECORDS SUMMARY | 2024-06-28 17:13 | XMS_ITS | Clinical Summary ---
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 For routine questions regarding patient records, call [phone] during business hours, M-F 8:00 AM - 5:00 PM Central Time. Record requests for emergency care only can be directed to [phone] at any time.[facility] Allergies No known active allergies Medications dilTIAZem CD (CARDIZEM CD/CARTIA XT) 240 mg 24 hr capsule Take 1 capsule (240 mg total) by mouth daily. 2 Active ezetimibe (ZETIA) 10 mg tablet Take 1 tablet (10 mg total) by mouth daily. 2 Active Additional Information Patient not taking.Reported on 12/21/2023 hydroCHLOROthi azide (HYDRODIURIL) 25 mg tablet Take 1 tablet (25 mg total) by mouth daily. 2 Active Additional Information Patient not taking.Reported on 12/21/2023 pantoprazole (PROTONIX) 40 mg EC tablet Take 1 tablet (40 mg total) by mouth daily. 2 Active atorvastatin (LIPITOR) 20 mg tablet Take 1 tablet (20 mg total) by mouth at bedtime. 2 Active Additional Information Patient not taking.Reported on 12/21/2023 acetaminophen (TYLENOL) 500 mg tablet Take 2 tablets (1,000 mg total) by mouth every 6 (six) hours as needed for mild pain or score 1-3 of 10 or headaches. 2 Active calcium carbonate (TUMS) 500 mg (200 mg calcium) chewable tablet Chew 2 tablets (400 mg of calcium total) every 4 (four) hours as needed for heartburn or indigestion. 2 Active carboxymethylc ellulose (REFRESH PLUS) 0.5 % ophthalmic solution Administer 1 drop into both eyes 4 (four) times a day as needed for dry eyes. 2 Active diclofenac sodium (VOLTAREN) 1 % gel Apply 2 g topically 4 (four) times a day as needed (hand joint pain). Apply to sore muscles 2 Active docusate sodium-benzoca ine (ENEMEEZ PLUS) 283-20 mg/5 mL enema Insert 1 enema into the rectum at bedtime. 2 Active enoxaparin (LOVENOX) 40 mg/0.4 mL injection Inject 0.4 mL (40 mg total) under the skin daily. 2 Active Additional Information Patient not taking.Reported on 12/21/2023 lidocaine (LIDODERM) 5 % Place 1 patch on the skin daily as needed (Discomfort). Apply to sore muscles/joints 2 Active lidocaine (LC-5) 5 % rectal cream Apply 1 application topically as needed for hemorrhoids. Apply to hemorrhoids as needed 0 2 Active melatonin 5 mg tablet Take 1 tablet (5 mg total) by mouth at bedtime as needed (sleep). 0 2 Active Additional Information Patient not taking.Reported on 12/21/2023 polyethylene glycol (MIRALAX) 17 gram powder packet Take 1 packet (17 g total) by mouth daily. Dissolve each 17 g dose in 240 mLs (8 ounces) of beverage. 2 Active gabapentin (NEURONTIN) 300 mg capsule Take 1 capsule (300 mg total) by mouth 3 (three) times a day. Chronic pains (leg) 2 Active lidocaine (LIDODERM) 5 % Place 1 patch on the skin daily as needed (Discomfort). Apply to leg pain. 2 Active levothyroxine (SYNTHROID, LEVOTHROID) 100 mcg tablet Take 1 tablet (100 mcg total) by mouth daily. Hypothyroidism 2 Active Additional Information Patient taking differently:100 mcg oral Daily,Taking 150 mcg, Reported on 12/21/2023 oxyCODONE (ROXICODONE) 5 mg immediate release tabletIndicati ons:Prolonged Acute Pain/Traumatic Injury Take 1 tablet (5 mg total) by mouth at bedtime as needed for severe pain or score 7-10 of 10 Indication: Prolonged Acute Pain/Traumatic Injury. 20 tablet 2 Active potassium chloride (K-TAB) 20 mEq CR tablet Take 1 tablet (20 mEq total) by mouth daily with breakfast. Low potassium. Do not crush or chew. 30 tablet 2 Active atorvastatin (LIPITOR) 20 mg tablet Take 1 tablet (20 mg total) by mouth at bedtime. Cardiovascular health 2 Active Additional Information Patient not taking.Reported on 12/21/2023 magnesium oxide (MAG-OX) 400 mg (241.3 mg magnesium) tablet Take 1 tablet (400 mg total) by mouth 2 (two) times a day before breakfast and dinner. For Low Magnesium 2 Active Additional Information Patient not taking.Reported on 12/21/2023 DULoxetine (CYMBALTA) [address] capsule Take 1 capsule (60 mg total) by mouth daily. For depression and chronic pain 2 Active diazePAM (VALIUM) 2 mg tablet Take 2 tablets (4 mg total) by mouth at bedtime as needed for anxiety or muscle spasms (spasticity). 20 tablet 2 Active Additional Information Patient not taking.Reported on 12/21/2023 sennosides (senna) 8.6 mg tablet Take 8.6 mg by mouth as needed for constipation. Active bacitracin 500 unit/gram ointment Apply 1 Application topically 2 (two) times a day. Apply to affected area. Active oxyBUTYnin (Ditropan) 5 mg tablet Take 5 mg by mouth 3 (three) times a day. Active ondansetron (Zofran) 4 mg tablet Take 4 mg by mouth every 8 (eight) hours as needed for nausea or vomiting. Active torsemide (Demadex) 20 mg tablet Take 20 mg by mouth daily. Active Active Problems Problem Noted Date Diagnosed Date Neurogenic Bladder 04/21/2021 Neurogenic Bowel 04/21/2021 Paraplegia Incomplete 03/21/2021 Stenosis Spinal Cervical 03/18/2021 Opioid Use Unspecified Uncomplicated 03/18/2021 Hypertension Essential Primary 03/18/2021 Neuropathy Peripheral 03/18/2021 Stenosis Spinal Lumbar With Neurogenic Claudicat ion 03/18/2021 Incontinence Urinary 03/18/2021 Loss Visual 03/18/2021 Abnormal Gait Non Orthopedic 03/18/2021 History Of Falling 03/18/2021 Chronic Kidney Disease (CKD) , Stage 3b Glomerular Filtration Rate (GFR) 30 To 44 03/18/2021 Gastroesophageal Reflux Disease NOS 03/18/2021 Hyperlipidemia On Treatment 03/18/2021 Obesity Body Mass Index 30-39.9 Adult 03/18/2021 Osteoporosis 03/18/2021 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 03/18/2021 Stenosis Spinal Thoracic 03/18/2021 Retention Urinary 03/18/2021 Hypothyroidism Primary 03/18/2021 Weakness Leg 03/17/2021 Resolved Problems Problem Noted Date Diagnosed Date Resolved Date Post Operative Nausea/Vomiting 04/10/2021 04/28/2021 Pain Low Back Chronic 03/18/20212021 Hysterectomy Status Post 03/18/2021 Urinary Tract Infection Site Not Specified 03/18/2021 03/18/2021 Appendectomy Status Post 03/18/2021 Decline Functional Status 03/18/2021 Anemia 03/18/2021 04/28/2021 Preoperative Exam 03/18/2021 04/28/2021 Immunizations Immunization Administration Dates Next Due HZV (ZOSTAVAX) 01/26/2012 Influenza, Seasonal, Injectable 01/26/2012,12/24 influenza trivalent high dose (HD)(PF) 3 Social History Tobacco Use Types Packs/Day Years Used Date Smoking Tobacco: Never Smokeless Tobacco: Never Tobacco Cessation:Counseling Given: Not Answered Dental Answer Date Recorded Dental: Regular Dentist Unknown 03/17/19 22 Comments No Sex and Gender Information Value Date Recorded Sex Assigned at Not on file 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 Gender Identity Not on file Sexual Orientation Not on file Last Filed Vital Signs Vital Sign Reading Time Taken Comments Blood Pressure 115/70 06/05/2021 11:13 AM CDT Pulse 86 06/05/2021 11:13 AM CDT Temperature 36.3 C (97.3 F) 06/05/2021 11:13 AM CDT Respiratory Rate 18 06/05/2021 11:1 3 AM CDT Oxygen Saturation 98% 06/05/2021 11: 13 AM CDT Inhaled Oxygen Concentration - - Weight 74.3 kg (163 lb 12.8 oz) 06/05/2021 5:21 AM CDT Height 154.9 cm (5' 0.98) 04/28/2021 1:30 PM CD T Body Mass Index 30.97 04/28/2021 1:30 PM CDT Plan of Treatment Health Maintenance Due Date Last Done Comments Hepatitis C Screening 1945 Office Visit for Blood Pressure Check / Re-check 1945 DTaP,Tdap,and Td Vaccines (1 - Tdap) 1964 Hepatitis A Vaccines (1 of 2 - Risk 2-dose series) 1964 Pneumococcal vaccine (50+ years) (1 of 1 - PCV) 07/09/1995 Hepatitis B Vaccines (1 of 3 - Risk 3-dose series) 2005 Zoster Vaccines (2 of 3) 03/22/2012 01/26/2012 Thyroid Stimulating Hormone (TSH) test for thyroid function 05/28/2022 05/28/2021, 04/13/2021 Creatinine Level (Kidney Function Test) 06/05/2022 06/05/2021, 06/04/2021, 05/25/2021, Additional history exists Potassium Level 06/05/2022 06/05/2021, 05/17, 05/25/2021, Additional history exists Sodium Level 06/05/2022 06/05/2021, 042 , 05/25/2021, Additional history exists Depression Screening (Annual PHQ-2) 02/16/2024 Fall Risk Screen (Annual) 02/16/2024 COVID-19 Vaccine ( season) 2024 12/10/2023, 06/15/2023, 12/08/2022, Additional history exists Influenza Vaccine Completed 12/10/2023, , 11/26/2021, Additional history exists RSV vaccine - (32-36 weeks) or 60+ years Completed 12/10/2023 IPV Vaccines Aged Out No longer eligi ble based on patient's age to complete this topic Procedures Procedure Name Priority Date/Time Associated Diagnosis Comments BASIC METABOLIC PANEL, S/P Routine 06/05/2021 6:28 AM CDT THYROID-STIMULATING HORMONE-SENSITIVE (S-TSH) Routine 05/28/2021 6:30 AM CDT from Last 3 Months or Most Recently Relevant to Health Maintenance Results * (ABNORMAL) Basic Metabolic Panel (06/05/2021 6:28 AM CDT) Potassium, P 4.0 3.6 - 5.2 mmol/L 06/05/2021 6:53 AM CDT NPRG Sodium, P 141 135 - 145 mmol/L 06/05/2021 6:53 AM CDT NPRG Chloride, P 99 98 - 107 mmol/L 06/05/2021 6:53 AM CDT NPRG Bicarbonate, P 32(H) 22 - 29 mmol/L 06/05/2021 6:53 AM CDT NPRG Anion Gap, P 10 7 - 15 06/05/2021 6:53 AM CDT NPRG BUN (Blood Urea Nitrogen), P 30(H) 6 - 21 mg/dL 06/05/2021 6:53 AM CDT NPRG Creatinine 0.78 0.59 - 1.04 mg/dL 06/05/2021 6:53 AM CDT NPRG eGFR-Black/Afri can Syrian 86 >=60 mL/min/BSA 06/05/2021 6:53 AM CDT NPRG Comment: ----ADDITIONAL INFORMATION---- Estimated GFR calculated using the 2009 CKD_EPI creatinine equation. eGFR Non-Black/Afric an Syrian 75 >=60 mL/min/BSA 06/05/2021 6:53 AM CDT NPRG Comment: ----ADDITIONAL INFORMATION---- Estimated GFR calculated using the 2009 CKD_EPI creatinine equation. Calcium, Total, P 9.5 8.8 - 10.2 mg/dL 06/05/2021 6:53 AM CDT NPRG Glucose, P 218(H) 70 - 140 mg/dL 06/05/2021 6:53 AM CDT NPRG Blood (Blood, Venous) 06/05/2021 6:28 AM CDT 06/05/2021 6:32 AM CDT us Shawna Juares M.D. LAB BLOOD ADD-ON Final R esult [facility] [address] [place] [address], [facility] NPRG [place] [address] [place] [address] * (ABNORMAL) S-TSH (Thyroid-Stimulating Hormone - Sensitive) (05/28/2021 6:30 AM CDT) TSH, Sensitive 6.7(H) 0.3 - 4.2 mIU/L 05/28/2021 7:22 AM CDT NPRG Blood (Blood, Venous) 05/28/2021 6:30 AM CDT 05/28/2021 6:51 AM CDT us Soto Grider M.D. LAB BLOOD ADD-ON Final Result Performing Organization Address City/[facility]/ZIP Co de Phone Number [facility] [address] [place] [address], [facility] NPRG [place] [address] [place] [address] from Last 3 Months or Most Recently Relevant to Health Maintenance Insurance [facility] Advance Directives For more information, please contact: [phone] * DNR/DNI (Latest Code Status on File) Date Activated Date Inactivated Comments 04/21/2021 2:19 PM 06/05/2021 1:37 PM * DNR/DNI Date Activated Date Inactivated Comments 04/10/2021 1:03 PM 04/21/2021 12:06 PM * Full Code Date Activated Date Inactivated Comments 04/10/2021 11:49 AM 04/10/2021 1:03 PM Question Answer Comments Full Code: Discussed * DNR/DNI Date Activated Date Inactivated Comments 04/10/2021 6:51 AM 04/10/2021 11:49 AM * Full Code Date Activated Date Inactivated Comments 03/21/2021 3:27 PM 04/10/2021 6:51 AM Question Answer Comments Full Code: Discussed 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
[2024-06-28 17:27] LABS: Lactate* 1.5 mmol/L (0.5-1.9)
[2024-06-28 17:30] LABS: Basophils Percent Auto 0.4 % (0.0-3.0); Eosinophils Percent Auto 0.3 % (0.0-7.0); Hematocrit 35.9 % (33.0-51.0); Hemoglobin* 11.8 gm/dL (12.0-16.0); Immature Granulocytes Pct Auto 0.8 %; Lymphocytes Percent Auto 12.5 % (20-44); Mean Corpuscular HGB Conc 33 gm/dL (32-36); Mean Corpuscular Hemoglobin 33 pg (26-34); Mean Corpuscular Volume 101 fL (80-100); Platelet Count* 149 K/uL (140-440); RDW Coefficient of Variation % 14.5 % (11.5-15.5); Red Blood Count 3.54 m/uL (4.00-5.20); White Blood Count* 14.06 K/uL (4.50-11.00)
[2024-06-28] MEDS: lidocaine HCL 2 % JELLY (TOP) STERILE 6 ML UR (17:31)
[2024-06-28 17:34] LABS: Slide Review Reflex No
[2024-06-28 17:59] LABS: Appearance Urine Clear (Clear); Bilirubin Urine Negative (Negative); Blood Urine 3+ (Negative); Color Urine Yellow (Yellow); Glucose Urine Negative (Negative); Ketones Urine Negative (Negative); Leukocyte Esterase Urine 3+ (Negative); Nitrite Urine Negative (Negative); Protein Urine 1+ (Negative); Specific Gravity Urine 1.025 (1.000-1.030); Urobilinogen Urine 0.2 (0.2-1.0); pH Urine 5.5 (5.0-8.5)
[2024-06-28 18:05] LABS: Albumin* 3.4 g/dL (3.3-5.0); Chloride* 104 mmol/L (96-114); Sodium* 135 mmol/L (135-149)
[2024-06-28 18:06] LABS: Potassium* 4.6 mmol/L (3.6-5.1)
[2024-06-28 18:08] LABS: Alanine Aminotransferase* 26 U/L (4-35); Aspartate Amino Transferase* 50 U/L (12-35); Blood Urea Nitrogen* 34 mg/dL (7-30); Creatinine* 1.7 mg/dL (0.5-1.5); Est. Creatinine Clearance* 19.59; Estimated Glomerular Filt Rate 31 ml/min
[2024-06-28 18:09] LABS: Alkaline Phosphatase* 226 U/L (40-150); Anion Gap 12 mEq/L (7-15); Calcium* 9.1 mg/dL (8.4-10.6); Carbon Dioxide* 19 mmol/L (20-32); Glucose* 81 mg/dL (60-115); Lipase* 411 U/L (23-300); Total Protein* 6.6 g/dL (6.0-8.3)
[2024-06-28 18:11] LABS: Bacteria Urine Many; Squamous Epithelial Cell Urine Few (None-Few)
[2024-06-28 18:11] LABS: C Reactive Protein* 1.2 mg/dL (0.5-1.0)
[2024-06-28] MEDS: cefTRIAXone 1 GM in 0.9 % SODIUM CHLORIDE Mini-bag 100 ML IVPB (19:27)
[2024-06-28] MEDS: PIPERACILLIN/TAZOBACTAM 4.5 GM in 0.9 % SODIUM CHLORIDE Mini-bag 100 ML IVPB (20:19)
[2024-06-28 20:28] LABS: TSH With Reflex to FT4* 0.099 uIU/mL (0.270-4.200)
[2024-06-28 21:08] LABS: Free T4 Free Thyroxine* 2.43 ng/dL (0.70-1.85)
[2024-06-28 22:03] LABS: Bilirubin Direct* 0.7 mg/dL (0.0-0.5)
[2024-06-28 22:07] LABS: Magnesium* 1.9 mg/dL (1.5-2.6)
[2024-06-28] MEDS: ACETAMINOPHEN 500 MG TABLET 1000 MG PO (22:29)
[2024-06-28] MEDS: LACTATED RINGERS 1000 ML 1,000 ML IV (22:30)
[2024-06-28] MEDS: OXYCODONE (CR) 10 MG TAB.ER.12H PO (22:32)
--- NOTE | 2024-06-28 22:44 | PC.NURSE ---
Patient arrived to floor from ED. Admitted and patient reports no pain. Wound on buttock present. Patient refusing lovenox, TEDs and SCDs at this time. Nurse educated patient on blood clots and prevention, risks and patient still refused. Patient also would like to not have vitals taken during the night and not be turned and repositioned. Patient informed on best practices and skin ulcer prevention and was okay with turning and repositioning every 2-3 hours during the night. NPO due to abdominal US int he morning. Daughter was notified per the patients request.
[2024-06-28 23:01] LABS: C.Difficile Negative (Negative); CDIFFEPI 027 PRESUMPTIVE NEGATIVE (Negative)
[2024-06-28] MEDS: LACTATED RINGERS 1000 ML 1,000 ML 125 ML IV (23:44)
--- NOTE | 2024-06-28 23:51 | P.IMHP_ITS ---
Assessment and Plan Assessment and plan (1) Vomiting: Status: Acute (2) Fever: Problem comment: Reported by group home staff 3 days prior to admission Status: Acute (3) Acute kidney injury: Problem comment: Likely due to acute illness and poor oral intake. Continue to monitor with resuscitation. Last creatinine on record was 0.8 in September of 2021. Now creatinine is 1.7. 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 Unknown if this is a clinically significant finding requiring treatment Status: Acute (5) Infarction of spleen: Problem comment: Seen on abdominal CT 06/28/2024. Cause for this is uncertain. Unclear if this is contributing to her abdominal pain. Status: Acute (6) Colitis: Problem comment: Noted on CT. She has chronic occasional diarrhea. Unclear if these are rel ated. Status: Acute (7) Paraplegia: Problem comment: Functional paraplegia due to lumbar spinal stenosis. Nonambulatory for at least 3 years Status: Acute (8) Abnormal serum level of lipase: Problem comment: Mild elevation at 411. Possibly related to concern about biliary disease Status: Acute (9) Neurogenic bladder: Problem comment: Suprapubic catheter Status: Acute (10) Decubitus ulcer of sacral area: Problem comment: Paraplegic Status: Acute (11) Spinal stenosis of lumbar region: Problem comment: Severe causing paraplegia Status: Acute (12) Chronic pain: Problem comment: On chronic opioid therapy Status: Acute (13) Presence of suprapubic catheter: Status: Acute (14) Malnutrition: Problem comment: Related to recent poor oral intake. Status: Acute Plan 78-year-old female admitted to the hospital with a few months of weight loss with postprandial nausea and now increasing abdominal pain and vomiting and onset of fever 3 days ago. I am concerned about the possibility of cholecystit is. Initiate antibiotic therapy for that and consult surgery. Continue to monitor and manage multiple other medical problems including acute kidney injury Total Time Spent Total Time Spent: Total time spent today is 90 minutes in review of outside records, coordination of care, discussion with patient and family about ongoing evaluation management of acute illness, fever, abdominal pain, weight loss. Hospitalist- H&P: HPI History of Present Illness Date Seen: 06/28/24 Chief complaint: Elevated white blood cell Narrative: Holli Tomlin is a 78 year old female admitted to the hospital with acute on chronic loss of appetite, nausea, vomiting, weight loss, abdominal pain. Patient reports that over the last few months she has lost about 30 lb. She reports this is because she nauseated when she eats so she only eats a little at a time. In the last few days she started vomiting, primarily at night. She will have several emesis in a short period of time, usually in the evening, and then does not have further emesis the rest the day or night. She reports some vague chronic abdominal pain as well. This is not clearly associated self with her nausea and vomiting. This past Wednesday, 3 days ago, the nurses at [address] [place] [address] where she lives noted that she had some fever. Her emesis is nonbloody. She has had occasional loose and diarrhea stools. These are typically about once a day however. Nonbloody no melena. She does have a neurogenic bladder for which she has a suprapubic catheter. She does get recurrent diagnosis of urinary tract infection. She is functionally paraplegic due to spinal stenosis in her lumbar spine. She has been nonambulatory for 3 years. During that time she has been living at [address] [place] [address] where she gets assistance with bed to chair transfers. [facility] Medical History (Updated 06/29/24 @ 00:17 by Dennis Zurita MD) Malnutrition ?E46 - Unspecified protein-calorie malnutrition (ICD-10) Presence of suprapubic catheter ?Z93.59 - Other cystostomy status (ICD-10) Chronic pain ?G89.29 - Other chronic pain (ICD-10) Depression ?F32.A - Depression, unspecified (ICD-10) Spinal stenosis of lumbar region ?M48.061 - Spinal stenosis, lumbar region without neurogenic claudication (ICD-10) Decubitus ulcer of sacral area ?L89.159 - Pressure ulcer of sacral region, unspecified stage (ICD-10) Neurogenic bladder ?N31.9 - Neuromuscular dysfunction of bladder, unspecified (ICD-10) Visual loss ?H54.7 - Unspecified visual loss (ICD-10) Paraplegia ?G82.20 - Paraplegia, unspecified (ICD-10) Surgical History (Updated 06/29/24 @ 00:08 by Dennis Zuriat MD) Hx of appendectomy ?Z90.49 - Acquired absence of other specified parts of digestive tract (ICD- 10) H/O lumbosacral spine surgery ?Z98.890 - Other specified postprocedural states (ICD-10) Social History (Updated 06/29/24 @ 00:09 by Dennis Zurita MD) Narrative: Lives at [address] [place] [address]. Nonambulatory for at least 3 years. Secondary to spinal stenosis. Suprapubic catheter due to neurogenic bladder. Code status is DNR. Daughter Milli manriquez ir is healthcare power of tax associate attorney. What is your current living situation?: I presently have a place to live Problems where you live: no known problems Problems where you live details: n/a In the past 12 months, utilities in danger of being shut off: no In past 12 months, lack of transportation kept you from medical appts, meetings, work, or getting things needed for daily living: no In the past 12 mos, have been you worried that your food would run out before you had money to buy more?: never true In the past 12 mos, the food you bought just didn't last and you didn't have money to buy more?: never true Highest level of school completed/degree received: high school graduate Smoking Status: Never smoker Do you use any of these nicotine containing products: None How often do you have a drink containing alcohol: never AUDIT-C Alcohol total score: 0 Non-prescribed substance use: denies use Caffeine: No How often does anyone, including family, friends and others, physically hurt you : never How often does anyone, including family, friends and others, insult or talk down to you: never How often does anyone, including family, friends and others, threaten you with harm: never How often does anyone, including family, friends and others, scream or curse at you: never Meds Home Medications and Allergies Home Medications ?Medication ?Instructions ?Recorded ?Confirmed ?Type acetaminophen 500 mg tablet 1,000 mg PO TID 06/28/24 06/28/24 History diclofenac sodium 1 % topical gel g topical 06/28/24 History diltiazem HCl 120 mg capsule,24 120 mg PO DAILY 06/28/24 06/28/24 History hr,extended release duloxetine 60 mg capsule,delayed 60 mg PO DAILY 06/28/24 06/28/24 History release gabapentin 300 mg capsule 300 mg PO DAILY 06/28/24 06/28/24 History levothyroxine 112 mcg tablet 112 mcg PO DAILY 06/28/24 06/28/24 History (Euthyrox) levothyroxine 150 mcg tablet 150 mcg PO DAILY 06/28/24 06/28/24 History oxybutynin chloride 5 mg 5 mg PO DAILY 06/28/24 06/28/24 History tablet,extended release 24 hr oxycodone 5 mg tablet 10 mg PO Q6H PRN 06/28/24 06/28/24 History pantoprazole 40 mg tablet,delayed 40 mg PO DAILY 06/28/24 06/28/24 History release polyethylene glycol 3350 17 17 g PO DAILY 06/28/24 06/28/24 History gram/dose oral powder potassium chloride 20 mEq 40 meq PO BID 06/28/24 06/28/24 History tablet,extended release sennosides 8.6 mg tablet (senna) 25.8 mg PO BID 06/28/24 06/28/24 History torsemide 10 mg tablet 30 mg PO DAILY 06/28/24 06/28/24 History triamcinolone acetonide 0.1 % applic topical 06/28/24 History topical cream white petrolatum-mineral oil 80 ophthalmic (eye) 06/28/24 History %-20 % eye ointment (Soothe Night Time Lubricant) Allergies Allergy/AdvReac Type Severity Reaction Status Date / Time No Known Drug Allergies Allergy Verified 06/28/24 16:19 Exam Narrative: Exam Narrative: She is alert and oriented to her circumstances. She appears in no distress. She gives her own history. Oropharynx with dry mucous membranes. Neck is supple without mass or adenopathy. Respirations are clear to auscultation. Cardiovascular: S1, S2, regular rate and rhythm. No murmur gallop or rub. Abdomen: Bowel sounds active. Abdomen is soft with diffuse mild tenderness. No peritonitis. No mass. Suprapubic catheter without significant surrounding erythema. Genitalia normal. Lower extremities with inability to lift the right foot and leg off the bed she can lift the left foot about 3 in off the bed. Otherwise 3/5 strength bilaterally in feet and ankles. Trace edema. Intact pedal pulses. No rash Const: Vital Signs, click to edit/add: Vital Signs - 24 hr 06/28/24 16:10 05/14/25 17:31 06/28/24 18:01 Temperature 97.4 F L Pulse Rate 80 76 Pulse Rate [Left P ulse Oximeter] 83 Pulse Rate [Pulse Oximeter] Respiratory Rate 20 15 12 Blood Pressure 123/103 H 129/67 Blood Pressure [Ri ght Arm] Blood Pressure [Ri ght Upper Arm] 113/66 Pulse Oximetry 97 100 100 Oxygen Delivery Me thod Room Air 06/28/24 19:02 06/28/24 19:31 06/28/24 20:04 Temperature Pulse Rate 78 83 88 Pulse Rate [Left P ulse Oximeter] Pulse Rate [Pulse Oximeter] Respiratory Rate 16 14 14 Blood Pressure 118/77 99/74 136/86 Blood Pressure [Ri ght Arm] Blood Pressure [Ri ght Upper Arm] Pulse Oximetry 100 100 100 Oxygen Delivery Me thod 06/28/24 22:03 06/28/24 22:11 06/28/24 23:47 Temperature 97.8 F Pulse Rate Pulse Rate [Left P ulse Oximeter] Pulse Rate [Pulse Oximeter] 86 75 Respiratory Rate 18 18 16 Blood Pressure Blood Pressure [Ri ght Arm] 143/89 H 131/59 L Blood Pressure [Ri ght Upper Arm] Pulse Oximetry 100 100 100 Oxygen Delivery Me thod Room Air Room Air Room Air Documenting provider has reviewed patient's vital signs: yes Hospitalist - H&P: Result Labs Labs: Short CBC 06/28/24 Range/Units 17:22 WBC 14.06 H (4.50-11.00) K/uL Hgb 11.8 L (12.0-16.0) gm/dL Hct 35.9 (33.0-51.0) % Plt Count 149 (140-440) K/uL BMP 06/28/24 17:22 Sodium 135 Potassium 4.6 Chloride 104 Carbon Dioxide 19 L BUN 34 H Creatinine 1.7 H Glucose 81 Calcium 9.1 Liver Function 06/28/24 Range/Units 17:22 Total Bilirubin 1.0 (0.1-1.5) mg/dL Direct Bilirubin 0.7 H (0.0-0.5) mg/dL AST 50 H (12-35) U/L ALT 26 (4-35) U/L Alkaline Phosphatase 226 H (40-150) U/L Albumin 3.4 (3.3-5.0) g/dL Urine 06/28/24 Range/Units 16:52 Urine Color Yellow (Yellow) Urine Appearance Clear (Clear) Urine pH 5.5 (5.0-8.5) Ur Specific [place] 1.025 (1.000-1.030) Urine Protein 1+ A (Negative) Urine Glucose (UA) Negative (Negative) Imaging CT scan - head: Radiologist's impression: INDICATION: Headache. Leukocytosis. Comparison 02/20/2021. TECHNIQUE: Noncontrast CT head. FINDINGS: Moderate generalized volume loss. Patchy low-attenuation change within the white matter consistent with chronic deep white matter small ischemic changes. Benign calcification the bilobed basal ganglia. No intracranial hemorrhage. No acute infarct. No midline shift. No abnormal ventricular dilatation. Normal calvarium and skull base. Visualized paranasal sinuses mastoid air cells are clear. Normal orbits bilaterally. IMPRESSION: 1. No acute intracranial abnormality. 2. Moderate generalized volume loss. Chronic deep white matter small vessel ischemic changes CT scan - abdomen: Radiologist's impression: INDICATION: Abdominal pain, vomiting, leukocytosis. TECHNIQUE: CT abdomen and pelvis acquired with 75 mL Isovue 370 IV contrast. COMPARISON: None available. FINDINGS: Lower chest: No focal consolidation. Liver: Diffuse hepatic steatosis. No suspicious focal hepatic lesion. Gallbladder and bile ducts: Hydropic gallbladder. No calcified gallstones. No significant pericholecystic fluid. Pancreas: Unremarkable. Spleen: Small areas of wedge-shaped subcapsular hypoenhancement. Adrenal glands: Unremarkable. Kidneys: Kidneys enhance symmetrically, without hydronephrosis. Too small to characterize hypodense bilateral renal lesions. Retroperitoneum: No lymphadenopathy. Bowel and mesentery: Bowel is not obstructed. No significant ascites, no pneumoperitoneum. Mild wall thickening of the rectosigmoid colon. Moderate-sized hiatal hernia. Bladder: Decompressed, in the presence of a suprapubic catheter. Reproductive organs: Post hysterectomy. Pelvic lymph nodes: No lymphadenopathy. Vessels: Extensive calcified and noncalcified atherosclerotic plaque throughout the abdominal aorta. Abdominal wall: No acute abdominal wall abnormality. Bones: Severe multilevel degenerative changes of the spine. Bones are diffusely osteopenic. Right hip arthroplasty. Postsurgical changes of the lumbar spine. IMPRESSION: 1. Small areas of wedge-shaped subcapsular hypoenhancement of the spleen, worrisome for small splenic infarcts. 2. Distended gallbladder. No significant pericholecystic fluid. Correlate clinically for any signs/symptoms of early acute cholecystitis. 3. Mild wall thickening of the rectosigmoid colon, may reflect mild colitis. Recommend correlation with routine colonoscopy/any recent colonoscopy results. 4. Additional incidental findings as above. Chest x-ray: Radiologist's impression: INDICATION: Vomiting, lethargy. TECHNIQUE: Chest 2 views. COMPARISON: None. FINDINGS: Cardiovascular and mediastinum: Heart size and vasculature are normal in caliber and appearance. Lungs and pleural spaces: No focal consolidation, pleural effusion, or pneumothorax. Bones and soft tissues: Partially imaged spinal fusion in the lumbar spine. 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 IMPRESSION: No evidence of an acute pulmonary process.
[2024-06-29] VITALS (23 sets, daily range): BP systolic 109–130; BP diastolic 48–76; PULSE 73–86; RESP 12–20; TEMP 35.9–36.8; O2SAT 96–100
[2024-06-29] MEDS: PIPERACILLIN/TAZOBACTAM 2.25 GM in 0.9 % SODIUM CHLORIDE Mini-bag 100 ML IVPB ×2 (01:42→09:15)
[2024-06-29 06:37] LABS: Lactate* 0.9 mmol/L (0.5-1.9)
[2024-06-29 06:43] LABS: Basophils Percent Auto 0.3 % (0.0-3.0); Eosinophils Percent Auto 0.5 % (0.0-7.0); Hematocrit 31.2 % (33.0-51.0); Hemoglobin* 10.2 gm/dL (12.0-16.0); Immature Granulocytes Pct Auto 0.9 %; Lymphocytes Percent Auto 16.9 % (20-44); Mean Corpuscular HGB Conc 33 gm/dL (32-36); Mean Corpuscular Hemoglobin 33 pg (26-34); Mean Corpuscular Volume 102 fL (80-100); Monocytes Percent Auto 6.7 % (0.0-11.0); Neutrophils Percent Auto 74.7 % (42.0-72.0); Platelet Count* 126 K/uL (140-440); RDW Coefficient of Variation % 14.6 % (11.5-15.5); Red Blood Count 3.07 m/uL (4.00-5.20); White Blood Count* 11.51 K/uL (4.50-11.00)
--- NOTE | 2024-06-29 06:46 | PC.NURSE ---
End of shift [id number]: A&O w/ some forgetfulness. VSS. pt cooperative w/ turn and repo q2h. Sacrum area red and bleeding. Mepilix placed. Suprapubic catheter in place and draining. Using call light appropriately.
[2024-06-29 06:55] LABS: Slide Review Reflex No
[2024-06-29 06:59] LABS: Albumin* 2.7 g/dL (3.3-5.0); Chloride* 107 mmol/L (96-114); Potassium* 4.3 mmol/L (3.6-5.1); Sodium* 137 mmol/L (135-149)
--- NOTE | 2024-06-29 07:00 | CRLHL7_ITS ---
For Patients: As a result of the Century Cures Act, medical imaging exams and procedure reports are released immediately into your electronic medical record. You may view this report before your referring provider. If you have questions, please contact your health care provider. INDICATION: Abdominal pain COMPARISON: CT 06/28/2024 TECHNIQUE: Eastman-scale and color Doppler ultrasound of the gallbladder and bile ducts FINDINGS: The gallbladder is substantially distended and measures about 12.5 centimeters in length and 5.8 centimeters in diameter. Gallbladder wall is 1 millimeter. No pericholecystic fluid. Positive sonographic Billy`s sign. There is some sludge in the lumen of the gallbladder but no shadowing stones are seen. The proximal extrahepatic bile duct measures 4-5 millimeters, normal. IMPRESSION: 1. The gallbladder is significantly distended and there is a positive sonographic Billy`s sign. 2. No gallbladder wall thickening or pericholecystic fluid. 3. Overall ultrasound findings are equivocal for acute cholecystitis. Dictated by Cadence Junior MD @ 06/29/2024 7:08:19 AM (Electronically Signed)
[2024-06-29 07:02] LABS: Alanine Aminotransferase* 19 U/L (4-35); Alkaline Phosphatase* 158 U/L (40-150); Anion Gap 7 mEq/L (7-15); Aspartate Amino Transferase* 37 U/L (12-35); Bilirubin Direct* 0.6 mg/dL (0.0-0.5); Bilirubin Total* 0.8 mg/dL (0.1-1.5); Blood Urea Nitrogen* 28 mg/dL (7-30); Calcium* 8.7 mg/dL (8.4-10.6); Carbon Dioxide* 23 mmol/L (20-32); Creatinine* 1.3 mg/dL (0.5-1.5); Est. Creatinine Clearance* 25.62; Estimated Glomerular Filt Rate 42 ml/min; Glucose* 74 mg/dL (60-115); Total Protein* 5.5 g/dL (6.0-8.3)
[2024-06-29 07:03] LABS: Lipase* 145 U/L (23-300)
--- NOTE | 2024-06-29 07:09 | P.GSCN_ITS ---
History of Present Illness Consult details Date Seen: 06/29/24 Consult date: 06/29/24 Narrative: 78-year-old female paraplegic with suprapubic catheter presented to emergency room with ?sore butt? and inability to eat. Patient states that she complains of abdominal pain that started last week. She points to epigastrium and right upper quadrant. She feels that every time she eats, she feels nauseous and vomits. She has not been eating much. Last bowel movement was yesterday. She denies any fevers. Upon her workup in the emergency room she was found to have elevated WBC of 14. Her total bilirubin was 1.1 with direct 0.7, alkaline phosphatase 2-6 and AST at 50. Her lipase was mildly elevated at 411. Patient had an abdominal CT that showed distended gallbladder with mild rectosigmoid thickening with no pericolonic inflammation. Abdominal ultrasound was obtained today that showed distended gallbladder with normal gallbladder wall and normal common bile duct. There was sludge in the gallbladder with no obvious stones. Patient's labs improved today with direct bilirubin of 0.6, alkaline phosphatase of 156, lipase of 145, and WBC of 11. Review of Systems Narrative: General: no fevers HENT: no problems swallowing CV: no shortness of breath Resp: no cough GI: No nausea, vomiting, abdominal pain : no dysuria, no increased urinary frequency, no hematuria Skin: no new rashes Musculoskeletal: no back pain Neuro: no muscle weakness Psyche: no depression, no anxiety PFSH PFSH Medical History (Updated 06/29/24 @ 07:13 by Yung Diaz MD) Malnutrition ?E46 - Unspecified protein-calorie malnutrition (ICD-10) Presence of suprapubic catheter ?Z93.59 - Other cystostomy status (ICD-10) Chronic pain ?G89.29 - Other chronic pain (ICD-10) Depression ?F32.A - Depression, unspecified (ICD-10) Spinal stenosis of lumbar region ?M48.061 - Spinal stenosis, lumbar region without neurogenic claudication (ICD-10) Decubitus ulcer of sacral area ?L89.159 - Pressure ulcer of sacral region, unspecified stage (ICD-10) Neurogenic bladder ?N31.9 - Neuromuscular dysfunction of bladder, unspecified (ICD-10) Visual loss ?H54.7 - Unspecified visual loss (ICD-10) Paraplegia ?G82.20 - Paraplegia, unspecified (ICD-10) Surgical History (Updated 06/29/24 @ 07:11 by Yung Diaz MD) History of hysterectomy ?Z90.710 - Acquired absence of both cervix and uterus (ICD-10) Hx of appendectomy ?Z90.49 - Acquired absence of other specified parts of digestive tract (ICD- 10) H/O lumbosacral spine surgery ?Z98.890 - Other specified postprocedural states (ICD-10) Social History Narrative: Lives at [address] [place] [address]. Nonambulatory for at least 3 years. Secondary to spinal stenosis. Suprapubic catheter due to neurogenic bladder. Code status is DNR. Daughter Milli manriquez ir is healthcare power of deputy attorney general. What is your current living situation?: I presently have a place to live Problems where you live: no known problems Problems where you live details: n/a In the past 12 months, utilities in danger of being shut off: no In past 12 months, lack of transportation kept you from medical appts, meetings, work, or getting things needed for daily living: no In the past 12 mos, have been you worried that your food would run out before you had money to buy more?: never true In the past 12 mos, the food you bought just didn't last and you didn't have money to buy more?: never true Highest level of school completed/degree received: high school graduate Smoking Status: Never smoker Do you use any of these nicotine containing products: None How often do you have a drink containing alcohol: never AUDIT-C Alcohol total score: 0 Non-prescribed substance use: denies use Caffeine: No How often does anyone, including family, friends and others, physically hurt you : never How often does anyone, including family, friends and others, insult or talk down to you: never How often does anyone, including family, friends and others, threaten you with harm: never How often does anyone, including family, friends and others, scream or curse at you: never Meds Home Medications and Allergies Home Medications ?Medication ?Instructions ?Recorded ?Confirmed ?Type acetaminophen 500 mg tablet 1,000 mg PO TID 06/28/24 06/28/24 History diclofenac sodium 1 % topical gel g topical 06/28/24 History diltiazem HCl 120 mg capsule,24 120 mg PO DAILY 06/28/24 06/28/24 History hr,extended release duloxetine 60 mg capsule,delayed 60 mg PO DAILY 06/28/24 06/28/24 History release gabapentin 300 mg capsule 300 mg PO DAILY 06/28/24 06/28/24 History levothyroxine 112 mcg tablet 112 mcg PO DAILY 06/28/24 06/28/24 History (Euthyrox) levothyroxine 150 mcg tablet 150 mcg PO DAILY 06/28/24 06/28/24 History oxybutynin chloride 5 mg 5 mg PO DAILY 06/28/24 06/28/24 History tablet,extended release 24 hr oxycodone 5 mg tablet 10 mg PO Q6H PRN 06/28/24 06/28/24 History pantoprazole 40 mg tablet,delayed 40 mg PO DAILY 06/28/24 06/28/24 History release polyethylene glycol 3350 17 17 g PO DAILY 06/28/24 06/28/24 History gram/dose oral powder potassium chloride 20 mEq 40 meq PO BID 06/28/24 06/28/24 History tablet,extended release sennosides 8.6 mg tablet (senna) 25.8 mg PO BID 06/28/24 06/28/24 History torsemide 10 mg tablet 30 mg PO DAILY 06/28/24 06/28/24 History triamcinolone acetonide 0.1 % applic topical 06/28/24 History topical cream white petrolatum-mineral oil 80 ophthalmic (eye) 06/28/24 History %-20 % eye ointment (Soothe Night Time Lubricant) Allergies Allergy/AdvReac Type Severity Reaction Status Date / Time No Known Drug Allergies Allergy Verified 06/28/24 16:19 Exam Narrative: Exam Narrative: General appearance: Alert, cooperative, and in no distress Pulmonary: Chest symmetric, lungs clear bilaterally Cardiovascular Heart: Regular rate and rhythm, S1, S2, no murmurs/rubs/gallops Gastrointestinal Abdominal: soft, not distended, tender to palpation in the right upper quadrant with positive Billy sign. Also uncomfortable to palpation suprapubically and patient states that when her catheter removed, she has discomfort. No peritoneal signs. Skin: Normal skin color, texture, and turgor. No rashes or lesions. Psychiatric: Alert, cooperative, normal affect. Const: Vital Signs, click to edit/add: Vital Signs - 24 hr 06/28/24 16:10 06/28/24 17:31 06/28/24 18:01 Temperature 97.4 F L Pulse Rate 80 76 Pulse Rate [Left P ulse Oximeter] 83 Pulse Rate [Pulse Oximeter] Respiratory Rate 20 15 12 Blood Pressure 123/103 H 129/67 Blood Pressure [Ri ght Arm] Blood Pressure [Ri ght Upper Arm] 113/66 Pulse Oximetry 97 100 100 Oxygen Delivery Me thod Room Air 06/28/24 19:02 06/28/24 19:31 06/28/24 20:04 Temperature Pulse Rate 78 83 88 Pulse Rate [Left P ulse Oximeter] Pulse Rate [Pulse Oximeter] Respiratory Rate 16 14 14 Blood Pressure 118/77 99/74 136/86 Blood Pressure [Ri ght Arm] Blood Pressure [Ri ght Upper Arm] Pulse Oximetry 100 100 100 Oxygen Delivery Me thod 06/28/24 22:03 06/28/24 22:11 06/28/24 23:47 Temperature 97.8 F Pulse Rate Pulse Rate [Left P ulse Oximeter] Pulse Rate [Pulse Oximeter] 86 75 Respiratory Rate 18 18 16 Blood Pressure Blood Pressure [Ri ght Arm] 143/89 H 131/59 L Blood Pressure [Ri ght Upper Arm] Pulse Oximetry 100 100 100 Oxygen Delivery Me thod Room Air Room Air Room Air 06/29/24 02:40 Temperature 96.6 F L Pulse Rate Pulse Rate [Left P ulse Oximeter] Pulse Rate [Pulse Oximeter] 79 Respiratory Rate 18 Blood Pressure Blood Pressure [Ri ght Arm] 109/48 L Blood Pressure [Ri ght Upper Arm] Pulse Oximetry 100 Oxygen Delivery Me thod Room Air Results Labs Labs: Abnormal lab results 06/28/24 06/28/24 06/29/24 Range/Units 16:52 17:22 06:17 WBC 14.06 H 11.51 H (4.50-11.00) K/uL RBC 3.54 L 3.07 L (4.00-5.20) m/uL Hgb 11.8 L 10.2 L (12.0-16.0) gm/dL Hct 31.2 L (33.0-51.0) % MCV 101 H 102 H (80-100) fL Plt Count 126 L (140-440) K/uL Neut % (Auto) 79.0 H 74.7 H (42.0-72.0) % Lymph % (Auto) 12.5 L 16.9 L (20-44) % Neut # (Auto) 11.10 H 8.60 H (1.7-7.0) K/uL [place] # (Auto) 1.00 H (0.00-0.90) K/UL Carbon Dioxide 19 L (20-32) mmol/L BUN 34 H (7-30) mg/dL Creatinine 1.7 H (0.5-1.5) mg/dL Direct Bilirubin 0.7 H (0.0-0.5) mg/dL AST 50 H (12-35) U/L Alkaline Phosphatase 226 H (40-150) U/L C-Reactive Protein 1.2 H (0.5-1.0) mg/dL Lipase 411 H (23-300) U/L TSH 0.099 L (0.270-4.200) uIU/mL Free T4 2.43 H (0.70-1.85) ng/dL Urine Protein 1+ A (Negative) Urine Blood 3+ A (Negative) Ur Leukocyte Esterase 3+ A (Negative) Urine RBC 5-10 A (0-2) Urine WBC 10-25 A (0-5) Urine Bacteria Many A (None) Diabetes panel 06/28/24 Range/Units 17:22 Sodium 135 (135-149) mmol/L Potassium 4.6 (3.6-5.1) mmol/L Chloride 104 (96-114) mmol/L Carbon Dioxide 19 L (20-32) mmol/L BUN 34 H (7-30) mg/dL Creatinine 1.7 H (0.5-1.5) mg/dL Glucose 81 (60-115) mg/dL Calcium 9.1 (8.4-10.6) mg/dL AST 50 H (12-35) U/L ALT 26 (4-35) U/L Alkaline Phosphatase 226 H (40-150) U/L Total Protein 6.6 (6.0-8.3) g/dL Albumin 3.4 (3.3-5.0) g/dL Thyroid panel 06/28/24 Range/Units 17:22 TSH 0.099 L (0.270-4.200) uIU/mL Calcium panel 06/28/24 Range/Units 17:22 Calcium 9.1 (8.4-10.6) mg/dL Albumin 3.4 (3.3-5.0) g/dL Pituitary panel 06/28/24 Range/Units 17:22 Sodium 135 (135-149) mmol/L Potassium 4.6 (3.6-5.1) mmol/L Chloride 104 (96-114) mmol/L Carbon Dioxide 19 L (20-32) mmol/L BUN 34 H (7-30) mg/dL Creatinine 1.7 H (0.5-1.5) mg/dL Glucose 81 (60-115) mg/dL Calcium 9.1 (8.4-10.6) mg/dL TSH 0.099 L (0.270-4.200) uIU/mL Adrenal panel 06/28/24 Range/Units 17:22 Sodium 135 (135-149) mmol/L Potassium 4.6 (3.6-5.1) mmol/L Chloride 104 (96-114) mmol/L Carbon Dioxide 19 L (20-32) mmol/L BUN 34 H (7-30) mg/dL Creatinine 1.7 H (0.5-1.5) mg/dL Glucose 81 (60-115) mg/dL Calcium 9.1 (8.4-10.6) mg/dL Total Bilirubin 1.0 (0.1-1.5) mg/dL AST 50 H (12-35) U/L ALT 26 (4-35) U/L Alkaline Phosphatase 226 H (40-150) U/L Total Protein 6.6 (6.0-8.3) g/dL Albumin 3.4 (3.3-5.0) g/dL All other labs normal. Progress Note:A&P Assessment and plan (1) Cholecystitis, acute: Status: Acute Plan 78-year-old female presents to the hospital with upper abdominal pain that is most likely due to acute cholecystitis and possible gallbladder hydrops. I discussed with the patient her laboratory findings and her CT and ultrasound findings. Patient has distended gallbladder and clinically has tenderness to palpation in the right upper quadrant with positive Billy sign. I am concerned about acute cholecystitis. I recommended to proceed with laparoscopic cholec ystectomy with intraoperative cholangiogram. Patient like to discuss this with her family prior to proceeding to surgery. The procedure was discussed in detail. The risks associated procedure including infection, bleeding, injury to the common bile duct, and injury to intra-abdominal organs were all discussed with the patient.
[2024-06-29] MEDS: LEVOTHYROXINE 112 MCG TABLET PO (07:17)
[2024-06-29] MEDS: dilTIAZem 120 MG CAP.ER.24H PO (09:36)
[2024-06-29] MEDS: DULOXETINE 30 MG CAPSULE DR 60 MG PO (09:36)
[2024-06-29] MEDS: oxyBUTYnin chloride 5 MG TAB.ER.24 PO (09:37)
[2024-06-29] MEDS: GABAPENTIN 300 MG CAPSULE PO (09:37)
[2024-06-29] MEDS: SODIUM CHLORIDE 0.9 % (FLUSH) 10 ML SYRINGE 5 ML IVF (09:40)
[2024-06-29] MEDS: LACTATED RINGERS 1000 ML 1,000 ML 125 ML IV (10:01)
[2024-06-29] MEDS: OXYCODONE (CR) 10 MG TAB.ER.12H PO ×2 (10:14→21:17)
--- NOTE | 2024-06-29 11:53 | PC.SOCIAL ---
Discharge Planning: Called [facility] and confirmed pt is on a bed hold at that [facility]. Also received a call from pt's [facility] wild animal caretaker Joann Herrera [phone] requesting a call when pt is discharged back to [facility]. cabin worker to follow up as needed.
--- NOTE | 2024-06-29 12:30 | CRLHL7_ITS ---
For Patients: As a result of the Century Cures Act, medical imaging exams and procedure reports are released immediately into your electronic medical record. You may view this report before your referring provider. If you have questions, please contact your health care provider. INDICATION : Laparoscopic cholecystectomy. TECHNIQUE : Intraoperative cholangiogram. Contrast injected via gallbladder neck and cystic duct. FINDINGS : Fluoroscopy time was 21.1 seconds. 1 image was obtained. IMPRESSION : Normal caliber intra and extrahepatic ducts. No filling defects. Contrast seen within the duodenum. Normal intraoperative cholangiogram. Dictated by Elton Salinas MD @ 06/29/2024 3:15:53 PM (Electronically Signed)
[2024-06-29] MEDS: CEFAZOLIN 1 GM inj IVP (13:30)
[2024-06-29] MEDS: BUPIVACAINE 0.25% 30 ML INJECTION (13:44)
[2024-06-29] MEDS: LIDOCAINE 1%-EPI 1:100,000 20 ML INFILTRATI (13:44)
[2024-06-29] MEDS: 0.9% SODIUM CHL 50 ML VIAL INJECTION (14:10)
[2024-06-29] MEDS: iopamidoL 50 ML VIAL INJECTION (14:10)
--- NOTE | 2024-06-29 14:31 | PM.IMPN1 ---
Assessment and Plan Assessment and plan (1) Cholecystitis, acute: Problem comment: Ultrasound shows gallbladder is significantly distended and there is a positive sonographic Billy`s sign. No gallbladder wall thickening or pericholecystic fluid. Overall ultrasound findings are equivocal for acute cholecystitis. LFTs down trending General surgery consult, Dr. Diaz, plan for laparoscopic cholecystectomy with intraoperative cholangiogram later today Pain management, NPO, IVF Status: Acute (2) Vomiting: Problem comment: In setting of acute cholecystitis, now resolved Status: Resolved (3) Fever: Problem comment: Reported by intermediate staff 3 days prior to admission. No recurrence Status: Resolved (4) Acute kidney injury: Problem comment: Likely due to acute illness and poor oral intake. Continue to monitor with resuscitation. Last creatinine on record was 0.8 in September of 2021. Now creatinine is 1.7. 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 Cause for this is uncertain. Unclear if this is contributing to her abdominal pain. Monitor postoperatively Status: Acute (7) Colitis: Problem comment: Noted on CT. She has chronic occasional diarrhea. Unclear if these are related. Monitor Status: Acute (8) Paraplegia: Problem comment: Functional paraplegia due to lumbar spinal stenosis. Nonambulatory for at least 3 years Status: Acute (9) Neurogenic bladder: Problem comment: Suprapubic catheter chronically Status: Acute (10) Spinal stenosis of lumbar region: Problem comment: Severe causing paraplegia Status: Acute (11) Decubitus ulcer of sacral area: Problem comment: Paraplegic. Monitor. Home cares Status: Acute (12) Chronic pain: Problem comment: On chronic opioid therapy Status: Acute (13) Malnutrition: Problem comment: Related to recent poor oral intake. Consult to Nutrition Status: Acute (14) Abnormal serum level of lipase: Problem comment: Mild elevation at 411. Possibly related to concern about biliary disease Improved to 145 Status: Resolved Plan Postoperative discharge plan per General surgery. Will return to [facility] Total Time Spent Total Time Spent: Today I spent 45 minutes seeing the patient, reviewing Expanse and EPIC notes/diagnostics, discussing the care plan with our care time that includes social work, PT/OT, pharmacy, RT, intermediate and documenting my impressions and plan in the medical record. Subjective Date Seen: 06/29/24 Interval history: Patient is seen sitting up in bed this morning. Continues to have intermittent abdominal pain which responds to pain medications. Denies headache or dizziness. Denies chest pain or shortness of breath. Is currently NPO. Denies nausea or recent vomiting. Was assessed by General surgery this morning, plan for laparoscopic cholecystectomy with intraoperative cholangiogram later today. Will remain NPO. Exam Narrative: Exam Narrative: PHYSICAL EXAM General: Pleasant, conversant, NAD HEENT: Normocephalic, atraumatic, sclera white, EOMI, oral mucosa moist Cardiovascular: RRR, S1S2. No pitting edema Pulmonary: CTA bilaterally without rhonchi, rales, expiratory wheezes. No dyspnea on room air Abdominal: Soft, generalized tenderness Neurological: Alert, answering questions appropriately, cranial nerves intact, no focal findings Extremities: No gross joint deformity or swelling. AROMI. Neurovascularly intact Skin: Warm, dry. Const: Vital Signs, click to edit/add: Vital Signs - 24 hr 06/28/24 16:10 06/28/24 17:31 06/28/24 18:01 Temperature 97.4 F L Pulse Rate 80 76 Pulse Rate [Left P ulse Oximeter] 83 Pulse Rate [Left R adial] Pulse Rate [Pulse Oximeter] Respiratory Rate 20 15 12 Blood Pressure 123/103 H 129/67 Blood Pressure [Ri ght Arm] Blood Pressure [Ri ght Upper Arm] 113/66 Pulse Oximetry 97 100 100 Oxygen Delivery Me thod Room Air 06/28/24 19:02 06/28/24 19:31 06/28/24 20:04 Temperature Pulse Rate 78 83 88 Pulse Rate [Left P ulse Oximeter] Pulse Rate [Left R adial] Pulse Rate [Pulse Oximeter] Respiratory Rate 16 14 14 Blood Pressure 118/77 99/74 136/86 Blood Pressure [Ri ght Arm] Blood Pressure [Ri ght Upper Arm] Pulse Oximetry 100 100 100 Oxygen Delivery Me thod 06/28/24 22:03 06/28/24 22:11 06/28/24 23:47 Temperature 97.8 F Pulse Rate Pulse Rate [Left P ulse Oximeter] Pulse Rate [Left R adial] Pulse Rate [Pulse Oximeter] 86 75 Respiratory Rate 18 18 16 Blood Pressure Blood Pressure [Ri ght Arm] 143/89 H 131/59 L Blood Pressure [Ri ght Upper Arm] Pulse Oximetry 100 100 100 Oxygen Delivery Ri thod Room Air Room Air Room Air 06/29/24 02:40 06/29/24 07:00 06/29/24 07:00 Temperature 96.6 F L 97.8 F Pulse Rate Pulse Rate [Left P ulse Oximeter] Pulse Rate [Left R adial] Pulse Rate [Pulse Oximeter] 79 86 86 Respiratory Rate 18 16 16 Blood Pressure Blood Pressure [Ri ght Arm] 109/48 L 129/76 Blood Pressure [Ri ght Upper Arm] Pulse Oximetry 100 100 Oxygen Delivery Ri thod Room Air Room Air 06/29/24 11:00 Temperature Pulse Rate Pulse Rate [Left P ulse Oximeter] Pulse Rate [Left R adial] 82 Pulse Rate [Pulse Oximeter] Respiratory Rate 16 Blood Pressure Blood Pressure [Ri ght Arm] 120/66 Blood Pressure [Ri ght Upper Arm] Pulse Oximetry 100 Oxygen Delivery Ri thod Room Air Labs Labs: Laboratory Results - last 24 hr 06/28/24 06/28/24 06/28/24 16:52 17:22 21:26 WBC 14.06 H RBC 3.54 L Hgb 11.8 L Hct 35.9 MCV 101 H MCH 33 MCHC 33 RDW Coeff of Marlene 14.5 Plt Count 149 Neut % (Auto) 79.0 H Lymph % (Auto) 12.5 L [place] % (Auto) 7.0 Eos % (Auto) 0.3 Baso % (Auto) 0.4 Neut # (Auto) 11.10 H Lymph # (Auto) 1.80 [place] # (Auto) 1.00 H Eos # (Auto) 0.00 Baso # (Auto) 0.10 Abs Immat Gran (auto) 0.10 Imm/Tot Granulo (auto) 0.8 Sodium 135 Potassium 4.6 Chloride 104 Carbon Dioxide 19 L Anion Gap 12 BUN 34 H Creatinine 1.7 H Estimated Creat Clear 19.59 Estimated GFR 31 Glucose 81 Lactate 1.5 Calcium 9.1 Magnesium 1.9 Total Bilirubin 1.0 Direct Bilirubin 0.7 H AST 50 H ALT 26 Alkaline Phosphatase 226 H C-Reactive Protein 1.2 H Total Protein 6.6 Albumin 3.4 Lipase 411 H TSH 0.099 L Free T4 2.43 H Urine Color Yellow Urine Appearance Clear Urine pH 5.5 Ur Specific [place] 1.025 Urine Protein 1+ A Urine Glucose (UA) Negative Urine Ketones Negative Urine Blood 3+ A Urine Nitrite Negative Urine Bilirubin Negative Urine Urobilinogen 0.2 Ur Leukocyte Esterase 3+ A Urine RBC 5-10 A Urine WBC 10-25 A Ur Squamous Epith Cells Few Urine Bacteria Many A Stl C. diff Tox B Gene Negative Stl C. diff [id number] PRESUMPTIVE NEGATIVE Lab Acknowledgement 06/28/24 06/28/24 06/29/24 21:50 21:54 06:17 WBC 11.51 H RBC 3.07 L Hgb 10.2 L Hct 31.2 L MCV 102 H MCH 33 MCHC 33 RDW Coeff of [place] 14.6 Plt Count 126 L Neut % (Auto) 74.7 H Lymph % (Auto) 16.9 L [place] % (Auto) 6.7 Eos % (Auto) 0.5 Baso % (Auto) 0.3 Neut # (Auto) 8.60 H Lymph # (Auto) 1.90 [place] # (Auto) 0.80 Eos # (Auto) 0.10 Baso # (Auto) 0.00 Abs Immat Gran (auto) 0.10 Imm/Tot Granulo (auto) 0.9 Sodium 137 Potassium 4.3 Chloride 107 Carbon Dioxide 23 Anion Gap 7 BUN 28 Creatinine 1.3 Estimated Creat Clear 25.62 Estimated GFR 42 Glucose 74 Lactate 0.9 Calcium 8.7 Magnesium Total Bilirubin 0.8 Direct Bilirubin 0.6 H AST 37 H ALT 19 Alkaline Phosphatase 158 H C-Reactive Protein Total Protein 5.5 L Albumin 2.7 L Lipase 145 TSH Free T4 Urine Color Urine Appearance Urine pH Ur Specific [place] Urine Protein Urine Glucose (UA) Urine Ketones Urine Blood Urine Nitrite Urine Bilirubin Urine Urobilinogen Ur Leukocyte Esterase Urine RBC Urine WBC Ur Squamous Epith Cells Urine Bacteria Stl C. diff Tox B Gene Stl C. diff [id number] Lab Acknowledgement Test Added Test Added
--- NOTE | 2024-06-29 14:53 | P.ANES_ITS ---
Anesthesia Charges Start Date/Time Anesthesia Start Date: 06/29/24 Anesthesia Start Time: 13:07 Stop Date/Time Anesthesia Stop Date: 06/29/24 Anesthesia Stop Time: 14:50 Summary Extremes of Age - Over 70 or under 1: INSIDE TECHNICAL SALES REPRESENTATIVE Coding CPT Codes CPT Codes: ANESTH SURG UPPER ABDOMEN - 92814 ([id number]) P3 - PATIENT W/SEVERE SYS DISEASE, QZ - INSIDE TECHNICAL SALES REPRESENTATIVE SVC W/O CAPPER MACHINE OPERATOR BY Additional Codes: Summary - Extremes of Age - Over 70 or under 1: INSIDE TECHNICAL SALES REPRESENTATIVE ([id number])
--- NOTE | 2024-06-29 14:53 | W.ANESCHARGE ---
Anesthesia Charges Start Date/Time Anesthesia Start Date: 06/29/24 Anesthesia Start Time: 13:07 Stop Date/Time Anesthesia Stop Date: 06/29/24 Anesthesia Stop Time: 14:50 Summary Extremes of Age - Over 70 or under 1: DIRECTOR OF ARCHIVES Coding CPT Codes CPT Codes: ANESTH SURG UPPER ABDOMEN - 00314 ([id number]) P3 - PATIENT W/SEVERE SYS DISEASE, QZ - DIRECTOR OF ARCHIVES SVC W/O CLAY ROASTER BY Additional Codes: Summary - Extremes of Age - Over 70 or under 1: DIRECTOR OF ARCHIVES ([id number])
--- NOTE | 2024-06-29 15:02 | P.GSOP_ITS ---
Operative Note Date of procedure: 06/29/24 Pre-op diagnosis: 1. Acute cholecystitis. 2. Possible choledocholithiasis. Post-op diagnosis: 1. Acute cholecystitis. Type of Procedure: 1. Laparoscopic cholecystectomy with intraoperative cholangiogram. Indications: 78-year-old female was admitted to the hospital with upper abdominal and right upper quadrant pain that started 1 week ago. Patient was not able to eat well and experienced vomiting after every meal. Patient had bowel movements. Upon her workup she was found to have elevated WBC of 14. Her direct bilirubin was mildly elevated to 0.7, mildly elevated alkaline phosphatase, AST and lipase. Patient's lipase normalized overnight. An abdominal CT was obtained that showed a distended gallbladder that was large. There was no pericholecystic inflammation. There was mild inflammation at the rectosigmoid junction with no evidence of pericolonic inflammation or perforated diverticulum. The gallbladder ultrasound was obtained that showed a large and distended gallbladder with normal size common bile duct and no evidence of pericholecystic fluid. There was sludge noted in the gallbladder. On clinical exam patient had tenderness to palpation in the right upper quadrant with positive Billy sign. Given patient's clinical history and her physical exam, acute cholecystitis was suspected and laparoscopic cholecystectomy with intraoperative cholangiogram was recommended. The procedure was discussed in detail. The risks associated procedure including infection, bleeding, injury to intra-abdominal organs, and injury to the common bile duct were all discussed with the patient, and she agreed to proceed. Procedure Description: After discussing the risks and benefits of the procedure, the patient signed informed consent.? The operative site was marked and the patient was brought to the operating room and placed on the operating table in supine position.? Care was taken to pad the patient's pressure points.?? The patient was then intubated by anesthesia.?? The operative site was then prepped and draped in the usual sterile fashion.? A time-out was then performed. A 5-mm laparoscopy port was placed in the left upper quadrant guided by a 5-mm laparoscope placed into a translucent trochar.~ Passage through the layers of the abdominal wall was visualized with the laparoscope.~ A pneumoperitoneum was established. A 0-degree 5-mm laparoscope was advanced into the abdomen. The abdomen was briefly surveyed, and no adhesions were noted. A 10-mm port were placed infraumbilically and two more 5 mm ports were placed on the right under direct visualization by laparoscope. The camera was then changed to 10 mm 30- degree scope and placed into the abdomen through the 10 mm port. The left upper quadrant port entrance was examined and no injury to intra-abdominal organs was identified. The gallbladder was identified, and was very distended. Laparoscopic needle was used to decompress the gallbladder. 60 mL of green bile were aspirated and sent for culture. The fundus grasped and retracted cephalad. The infundibulum was grasped and retracted laterally, exposing the peritoneum overlying the triangle of Calot. This was then divided and exposed in a blunt fashion and with hook cautery. Common bile duct was not identified but care was taken not to injure it. The cystic duct was clearly identified and bluntly dissected circumferentially. Cystic artery was identified and tissues around it were dissected off. The cystic artery was clipped with two 5 mm clips on the patient's side and a single clip on the specimen side and divided between the clips. We then proceeded with intraoperative cholangiogram. The cystic duct was clipped with a 5 mm clip on the gallbladder side and a small ductotomy was made with laparoscopic Metzenbaum scissors. An additional 5 mm port was placed under direct visualization in the right upper quadrant. A cholangiogram was placed through the port and a cholangiocatheter was placed through the introducer and directed into the cystic duct. The catheter was then grasped with [place] dissector occluding the cystic duct. Fluoroscopy was brought onto the field and Optiray 300 contrast dye was injected through the cholangiocatheter. The biliary tree was visualized and the contrast appeared to be emptying into the small bowel. There was good filling of the hepatic tree. At this time 5 mm clip on the cystic duct and cholangiocatheter were removed and the cholangiocatheter was removed from the cystic duct. The duct was then clipped with 5 mm clips on the patient's side just below the ductotomy. The cystic duct was then divided at the level of ductotomy. The gallbladder was dissected from the liver bed in retrograde fashion using hookcautery. The gallbladder was placed into an Endo-Catch bag and removed through the infraumbilical incision. The fascia of the infraumbilical incision was then closed with a running 0-0 Vicryl stitch. Surgical site was examined for bleeding. Mild wheezing was seen from the gallbladder fossa. This was controlled with hook cautery and 1 g of Brittany was sprayed into the gallbladder fossa. Pneumoperitoneum was completely reduced after viewing removal of the trocars under direct vision. The skin of all incisions was then closed with 4-0 monocryl and steristrips were applied. Instrument, sponge, and needle counts were correct at closure and at the conclusion of the case. The patient was transferred to PACU in stable condition. Findings: Distended gallbladder with only mild inflammation. Anesthesia: GETA Surgeon: Yung Diaz MD Estimated blood loss (mL): 10 Specimen: Gallbladder Condition: stable Disposition: PACU
--- NOTE | 2024-06-29 15:36 | SUR.PHASEI ---
patient met discharge criteria per anesthesia
[2024-06-29] MEDS: OXYCODONE 5 MG TABLET 10 MG PO ×2 (17:00→18:33)
[2024-06-29] MEDS: LACTATED RINGERS 1000 ML 1,000 ML 35 ML IV (18:30)
--- NOTE | 2024-06-29 19:35 | PC.NURSE ---
End of shift report: Pt was NPO prior to procedure. VSS. Afebrile. After procedure pt denies nausea. VSS. Pt tolerating clears. Pt had a liquid small BM this shift. Barrier cream applied to sacrum sore, mepilex is C/D/I. Abdominal incision sites are C/D/I. Family is present at bedside.
[2024-06-29] MEDS: ACETAMINOPHEN 500 MG TABLET 1000 MG PO (21:16)
[2024-06-29] MEDS: SENNOSIDES 1 TAB TABLET 3 TAB PO (21:18)
--- NOTE | 2024-06-29 22:03 | PC.NURSE ---
Patient admitted S/P gallbladder removal. Patient tolerating clear liquid diet. Patient managing pain with scheduled and prn medications as well as ice and repositioning. Patients SP cath patent. RN from previous shift noticed a tunneling wound to Right inguinal fold.
[2024-06-30] MEDS: LACTATED RINGERS 1000 ML 1,000 ML 35 ML IV (02:13)
[2024-06-30 03:00] VITALS: BP 133/70; RESP 16; TEMP 36.2; O2SAT 100
--- NOTE | 2024-06-30 06:31 | PC.NURSE ---
Shift note [id number] The pt has been pleasant and cooperative; denied chest pain and short of breath; Spo2 has been in the 90s in RA. The lap surgical sites have been covered with steri strip dressing C/D/I. The pt denied abdominal pain , nausea or vomiting throughout the night. Bowel sounds are hypoactive. The pt refused to be turned and repositioned ; IVF LR has been running at 125 ml/hr . The pt appeared without any acute distress throughout the shift
[2024-06-30] MEDS: LEVOTHYROXINE 112 MCG TABLET PO (06:36)
[2024-06-30 07:00] VITALS: BP 125/60; PULSE 92; RESP 16; TEMP 36.4; O2SAT 100
[2024-06-30 07:04] LABS: Albumin* 2.7 g/dL (3.3-5.0); Chloride* 106 mmol/L (96-114)
[2024-06-30 07:05] LABS: Sodium* 138 mmol/L (135-149)
[2024-06-30 07:07] LABS: Alanine Aminotransferase* 25 U/L (4-35); Alkaline Phosphatase* 157 U/L (40-150); Anion Gap 11 mEq/L (7-15); Aspartate Amino Transferase* 59 U/L (12-35); Basophils Percent Auto 0.1 % (0.0-3.0); Bilirubin Total* 0.7 mg/dL (0.1-1.5); Blood Urea Nitrogen* 19 mg/dL (7-30); Carbon Dioxide* 21 mmol/L (20-32); Creatinine* 1.1 mg/dL (0.5-1.5); Est. Creatinine Clearance* 30.28; Estimated Glomerular Filt Rate 51 ml/min; Hematocrit 29.5 % (33.0-51.0); Immature Granulocytes Pct Auto 1.9 %; Lipase* 39 U/L (23-300); Lymphocytes Percent Auto 7.4 % (20-44); Mean Corpuscular HGB Conc 34 gm/dL (32-36); Mean Corpuscular Hemoglobin 35 pg (26-34); Mean Corpuscular Volume 102 fL (80-100); Monocytes Percent Auto 2.5 % (0.0-11.0); Neutrophils Percent Auto 88.1 % (42.0-72.0); Platelet Count* 145 K/uL (140-440); RDW Coefficient of Variation % 14.9 % (11.5-15.5); Total Protein* 5.5 g/dL (6.0-8.3); White Blood Count* 13.87 K/uL (4.50-11.00)
[2024-06-30 07:08] LABS: Calcium* 8.7 mg/dL (8.4-10.6); Glucose* 78 mg/dL (60-115)
[2024-06-30 07:27] LABS: Slide Review Reflex No
[2024-06-30] MEDS: cefTRIAXone 1 GM in 0.9 % SODIUM CHLORIDE Mini-bag 100 ML IVPB (08:52)
[2024-06-30] MEDS: OMEPRAZOLE 20 MG CAPSULE DR 40 MG PO (08:53)
[2024-06-30] MEDS: dilTIAZem 120 MG CAP.ER.24H PO (08:54)
[2024-06-30] MEDS: DULOXETINE 30 MG CAPSULE DR 60 MG PO (08:54)
[2024-06-30] MEDS: GABAPENTIN 300 MG CAPSULE PO (08:55)
[2024-06-30] MEDS: ACETAMINOPHEN 500 MG TABLET 1000 MG PO ×2 (08:55→13:32)
[2024-06-30] MEDS: oxyBUTYnin chloride 5 MG TAB.ER.24 PO (08:56)
[2024-06-30] MEDS: SODIUM CHLORIDE 0.9 % (FLUSH) 10 ML SYRINGE 5 ML IVF (08:57)
[2024-06-30] MEDS: LACTATED RINGERS 1000 ML 1,000 ML 125 ML IV (10:08)
[2024-06-30] MEDS: OXYCODONE (CR) 10 MG TAB.ER.12H PO (10:11)
[2024-06-30 10:23] LABS: Bilirubin Direct* 0.6 mg/dL (0.0-0.5)
[2024-06-30 11:00] VITALS: BP 100/60; PULSE 88; RESP 16; TEMP 36.4; O2SAT 100
--- NOTE | 2024-06-30 11:36 | P.IMCN_ITS ---
Date of Consult Consult date: 06/30/24 Requesting Physician: Hospitalist Primary Care Provider: Be John MD Consult Narrative Narrative: Holli Tomlin is a 78 year old female that is admitted to our Med/Surg unit on 06/28/24 for chronic loss of appetite, nausea, vomiting, weight loss, abdominal pain. She does have a neurogenic bladder for which she has a suprapubic catheter. She does get recurrent diagnosis of urinary tract infection. 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 She has been nonambulatory for 3 years. During that time she has been living at [address] [place] [address] where she gets assistance with bed to chair transfers. Wound Care Nurse practitioner asked to see patient due to a tunneling wound near the vulva, unsure when this was found during her hospitalization. Patient seen while lying in bed with the floor nurse present. Patient does appear uncomf ortable with repositioning and with minimal movement. It is quite hard for her to allow the nurse to keep her right lower extremity elevated to allow for good visualization over the wound. A silicone foam border dressing has been placed over the area. Patient did not know the wound was present. She states her living center has not been treating this wound. Her suprapubic catheter site is covered with a dressing, does not appear to have any saturation of the drainage. Review of Systems Status of ROS: Reports: 6 or more systems reviewed and unremarkable except as noted in History and below [facility] Medical History (Updated 06/30/24 @ 11:51 by Yesy Bell APRN) Malnutrition ?E46 - Unspecified protein-calorie malnutrition (ICD-10) Presence of suprapubic catheter ?Z93.59 - Other cystostomy status (ICD-10) Chronic pain ?G89.29 - Other chronic pain (ICD-10) Depression ?F32.A - Depression, unspecified (ICD-10) Spinal stenosis of lumbar region ?M48.061 - Spinal stenosis, lumbar region without neurogenic claudication (ICD-10) Decubitus ulcer of sacral area ?L89.159 - Pressure ulcer of sacral region, unspecified stage (ICD-10) Neurogenic bladder ?N31.9 - Neuromuscular dysfunction of bladder, unspecified (ICD-10) Visual loss ?H54.7 - Unspecified visual loss (ICD-10) Paraplegia ?G82.20 - Paraplegia, unspecified (ICD-10) Surgical History (Updated 06/29/24 @ 07:11 by Yung Diaz MD) History of hysterectomy ?Z90.710 - Acquired absence of both cervix and uterus (ICD-10) Hx of appendectomy ?Z90.49 - Acquired absence of other specified parts of digestive tract (ICD- 10) H/O lumbosacral spine surgery ?Z98.890 - Other specified postprocedural states (ICD-10) Social History Narrative: Lives at [address] [place] [address]. Nonambulatory for at least 3 years. Secondary to spinal stenosis. Suprapubic catheter due to neurogenic bladder. Code status is DNR. Daughter Milli manriquez ir is healthcare power of claims attorney. What is your current living situation?: I presently have a place to live Problems where you live: no known problems Problems where you live details: n/a In the past 12 months, utilities in danger of being shut off: no In past 12 months, lack of transportation kept you from medical appts, meetings, work, or getting things needed for daily living: no In the past 12 mos, have been you worried that your food would run out before you had money to buy more?: never true In the past 12 mos, the food you bought just didn't last and you didn't have money to buy more?: never true Highest level of school completed/degree received: high school graduate Smoking Status: Never smoker Do you use any of these nicotine containing products: None How often do you have a drink containing alcohol: never AUDIT-C Alcohol total score: 0 Non-prescribed substance use: denies use Caffeine: No How often does anyone, including family, friends and others, physically hurt you : never How often does anyone, including family, friends and others, insult or talk down to you: never How often does anyone, including family, friends and others, threaten you with harm: never How often does anyone, including family, friends and others, scream or curse at you: never Meds Home Medications and Allergies Home Medications ?Medication ?Instructions ?Recorded ?Confirmed ?Type acetaminophen 500 mg tablet 1,000 mg PO TID 06/28/24 06/28/24 History diclofenac sodium 1 % topical gel 2 g topical QID PRN 06/28/24 06/29/24 History duloxetine 60 mg capsule,delayed 60 mg PO DAILY 06/28/24 06/28/24 History release gabapentin 300 mg capsule 300 mg PO TID 06/28/24 06/29/24 History levothyroxine 112 mcg tablet 112 mcg PO DAILY 06/28/24 06/28/24 History (Euthyrox) levothyroxine 150 mcg tablet 150 mcg PO DAILY 06/28/24 06/28/24 History oxybutynin chloride 5 mg 5 mg PO DAILY 06/28/24 06/28/24 History tablet,extended release 24 hr oxycodone 5 mg tablet 10 mg PO Q6H PRN 06/28/24 06/28/24 History pantoprazole 40 mg tablet,delayed 40 mg PO DAILY 06/28/24 06/28/24 History release polyethylene glycol 3350 17 17 g PO DAILY 06/28/24 06/28/24 History gram/dose oral powder potassium chloride 20 mEq 40 meq PO BID 06/28/24 06/28/24 History tablet,extended release sennosides 8.6 mg tablet (senna) 25.8 mg PO BID 06/28/24 06/28/24 History torsemide 10 mg tablet 30 mg PO DAILY 06/28/24 06/28/24 History triamcinolone acetonide 0.1 % applic topical 06/28/24 History topical cream white petrolatum-mineral oil 80 ophthalmic (eye) 06/28/24 History %-20 % eye ointment (Soothe Night Time Lubricant) diltiazem HCl 240 mg capsule,24 240 mg PO DAILY 06/29/24 06/29/24 History hr,extended release Allergies Allergy/AdvReac Type Severity Reaction Status Date / Time No Known Drug Allergies Allergy Verified 06/28/24 16:19 Exam Const: Vital Signs, click to edit/add: Vital Signs - 24 hr 06/29/24 14:45 06/29/24 14:50 06/29/24 14:55 Temperature 97.2 F L 97.2 F L 97.2 F L Pulse Rate 75 74 74 Pulse Rate [Right Pulse Oximeter] Respiratory Rate 19 20 20 Blood Pressure 126/51 L 124/59 L 123/58 L Blood Pressure [Le ft Arm] Pulse Oximetry 99 98 98 Oxygen Delivery Me thod Room Air Room Air Room Air 06/29/24 15:00 06/29/24 15:00 06/29/24 15:05 Temperature 97.2 F L 97.2 F L Pulse Rate 73 75 Pulse Rate [Right Pulse Oximeter] 82 Respiratory Rate 19 16 12 Blood Pressure 124/54 L 119/56 L Blood Pressure [Le ft Arm] Pulse Oximetry 98 98 Oxygen Delivery Me thod Room Air Room Air 06/29/24 15:10 06/29/24 15:15 06/29/24 15:22 Temperature 98.3 F 98.3 F 97.4 F L Pulse Rate 75 75 76 Pulse Rate [Right Pulse Oximeter] Respiratory Rate 14 13 14 Blood Pressure 117/53 L 109/59 L 122/60 Blood Pressure [Le ft Arm] Pulse Oximetry 99 98 98 Oxygen Delivery Me thod Room Air Room Air Room Air 06/29/24 15:30 06/29/24 15:45 06/29/24 16:00 Temperature 97.5 F L 97.5 F L 97.5 F L Pulse Rate 76 76 78 Pulse Rate [Right Pulse Oximeter] Respiratory Rate 16 16 16 Blood Pressure 124/62 109/68 120/66 Blood Pressure [Le ft Arm] Pulse Oximetry 99 96 100 Oxygen Delivery Me thod Room Air Room Air Room Air 06/29/24 16:15 06/29/24 16:45 06/29/24 17:15 Temperature 96.9 F L 96.6 F L 97 F L Pulse Rate 79 82 80 Pulse Rate [Right Pulse Oximeter] Respiratory Rate 18 16 16 Blood Pressure 124/65 115/64 109/76 Blood Pressure [Le ft Arm] Pulse Oximetry 100 100 100 Oxygen Delivery Me thod Room Air Room Air Room Air 06/29/24 18:15 06/29/24 19:11 06/29/24 20:06 Temperature 97.2 F L 96.8 F L 96.8 F L Pulse Rate 81 82 81 Pulse Rate [Right Pulse Oximeter] Respiratory Rate 16 16 16 Blood Pressure 130/64 130/64 127/73 Blood Pressure [Le ft Arm] Pulse Oximetry 100 100 100 Oxygen Delivery Me thod Room Air Room Air Room Air 06/29/24 21:13 06/29/24 23:00 06/29/24 23:45 Temperature 96.8 F L 96.7 F L Pulse Rate 81 Pulse Rate [Right Pulse Oximeter] Respiratory Rate 16 16 16 Blood Pressure 121/62 Blood Pressure [Le ft Arm] 128/67 Pulse Oximetry 100 99 Oxygen Delivery Me thod Room Air Room Air 06/30/24 03:00 06/30/24 07:00 06/30/24 07:00 Temperature 97.1 F L 97.6 F Pulse Rate Pulse Rate [Right Pulse Oximeter] 92 92 Respiratory Rate 16 16 16 Blood Pressure Blood Pressure [Le ft Arm] 133/70 125/60 Pulse Oximetry 100 100 Oxygen Delivery Me thod Room Air Room Air Common normals: healthy appearing and alert General appearance: cooperative Resp: Common normals: normal respiratory effort Effort & inspection: able to speak in complete sentences Neuro: Sensorium/orientation: alert Skin: Wounds: wounds noted (Unable to measure due to patient discomfort. Linear breakdown in groin. ) drainage (scant amount) serous and without odor Labs Labs: Short CBC 06/30/24 Range/Units 05:58 WBC 13.87 H (4.50-11.00) K/uL Hgb 10.0 L (12.0-16.0) gm/dL Hct 29.5 L (33.0-51.0) % Plt Count 145 (140-440) K/uL BMP 06/30/24 05:58 Sodium 138 Potassium 4.0 Chloride 106 Carbon Dioxide 21 BUN 19 Creatinine 1.1 Glucose 78 Calcium 8.7 Liver Function 06/30/24 Range/Units 05:58 Total Bilirubin 0.7 (0.1-1.5) mg/dL Direct Bilirubin 0.6 H (0.0-0.5) mg/dL AST 59 H (12-35) U/L ALT 25 (4-35) U/L Alkaline Phosphatase 157 H (40-150) U/L Albumin 2.7 L (3.3-5.0) g/dL Assessment and Plan Assessment and plan (1) Other specified disorders of the skin and subcutaneous tissue: Status: Acute Assessment and Plan: Area of skin breakdown assessed to be a linear partial thickness area in her right perineum. Attempted to probe with sterile cotton tipped applicator as this was reported as a tunneling wound. There is no area of probing. Able to assess a 0.2mm depth to a clean wound bed. Scant, serous drainage present. Moist skin folds present. Silicone foam border dressing remains in place over wound, able to replace after assessment. Area is breakdown due to moisture. Recommendations: 1) Keep areas clean and dry. Good hygeine. 2) Ok to keep foam dressing in place for now. If does not stay in place you would not need to replace. 3) Utilization of Moisture wicking fabric/Interdry to bilateral groin folds would be of benefit to the patient. No need for creams/powders/ointments with the use of Interdry. 4) If facility is not able to utilize Interdry they would be able to use soft cloths such as pillow cases in the folds until this area resolves. Then good hyg eine is needed to keep the folds from moisture breakdown.
--- NOTE | 2024-06-30 11:50 | PM.GSPN ---
Subjective Subjective Date Seen: 06/30/24 Interval history: Patient is doing well after laparoscopic cholecystectomy. She denies any nausea vomiting. She complains of abdominal pain but the pain is improved. She had diarrhea yesterday. Exam Narrative: Exam Narrative: Abdomen is soft, not distended, not tender to palpation, laparoscopic incisions are covered with Steri-Strips. Const: Vital Signs, click to edit/add: Vital Signs - 24 hr 06/29/24 14:45 06/29/24 14:50 06/29/24 14:55 Temperature 97.2 F L 97.2 F L 97.2 F L Pulse Rate 75 74 74 Pulse Rate [Right Pulse Oximeter] Respiratory Rate 19 20 20 Blood Pressure 126/51 L 124/59 L 123/58 L Blood Pressure [Le ft Arm] Pulse Oximetry 99 98 [facility] 06/29/24 15:00 06/29/24 15:00 06/29/24 15:05 Temperature 97.2 F L 97.2 F L Pulse Rate 73 75 Pulse Rate [Right Pulse Oximeter] 82 Respiratory Rate 19 16 12 Blood Pressure 124/54 L 119/56 L Blood Pressure [Le ft Arm] Pulse Oximetry 98 98 [facility] 06/29/24 15:10 06/29/24 15:15 06/29/24 15:22 Temperature 98.3 F 98.3 F 97.4 F L Pulse Rate 75 75 76 Pulse Rate [Right Pulse Oximeter] Respiratory Rate 14 13 14 Blood Pressure 117/53 L 109/59 L 122/60 Blood Pressure [Le ft Arm] Pulse Oximetry 99 98 98 [facility] Room Air 06/29/24 15:30 06/29/24 15:45 06/29/24 16:00 Temperature 97.5 F L 97.5 F L 97.5 F L Pulse Rate 76 76 78 Pulse Rate [Right Pulse Oximeter] Respiratory Rate 16 16 16 Blood Pressure 124/62 109/68 120/66 Blood Pressure [Le ft Arm] Pulse Oximetry 99 96 100 [facility] Room Air 06/29/24 16:15 06/29/24 16:45 06/29/24 17:15 Temperature 96.9 F L 96.6 F L 97 F L Pulse Rate 79 82 80 Pulse Rate [Right Pulse Oximeter] Respiratory Rate 18 16 16 Blood Pressure 124/65 115/64 109/76 Blood Pressure [Le ft Arm] Pulse Oximetry 100 100 100 Oxygen Delivery Me thod Room Air Room Air Room Air 06/29/24 18:15 06/29/24 19:11 06/29/24 20:06 Temperature 97.2 F L 96.8 F L 96.8 F L Pulse Rate 81 82 81 Pulse Rate [Right Pulse Oximeter] Respiratory Rate 16 16 16 Blood Pressure 130/64 130/64 127/73 Blood Pressure [Le ft Arm] Pulse Oximetry 100 100 100 Oxygen Delivery Me thod Room Air Room Air Room Air 06/29/24 21:13 06/29/24 23:00 06/29/24 23:45 Temperature 96.8 F L 96.7 F L Pulse Rate 81 Pulse Rate [Right Pulse Oximeter] Respiratory Rate 16 16 16 Blood Pressure 121/62 Blood Pressure [Le ft Arm] 128/67 Pulse Oximetry 100 99 Oxygen Delivery De thod Room Air Room Air 06/30/24 03:00 06/30/24 07:00 06/30/24 07:00 Temperature 97.1 F L 97.6 F Pulse Rate Pulse Rate [Right Pulse Oximeter] 92 92 Respiratory Rate 16 16 16 Blood Pressure Blood Pressure [Le ft Arm] 133/70 125/60 Pulse Oximetry 100 100 Oxygen Delivery Me thod Room Air Room Air Progress Note:A&P Assessment and plan (1) Cholecystitis, acute: Status: Acute Assessment and Plan: 78-year-old female s/p laparoscopic cholecystectomy with intraoperative cholangiogram POD 1. Patient is recovering well. Her direct bilirubin remains elevated at 0.6. Her intraoperative cholangiogram did not show common bile duct stones. 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 Patient can advance diet as tolerated. Okay to discharge home from the surgery standpoint on Augmentin for 7 days. Patient should have repeat liver function tests in 1 week to make sure those are improving.
--- NOTE | 2024-06-30 12:01 | PC.SOCIAL ---
Discharge planning: Met with pt who states she has lived at [facility] for 3 years and plans to return there at discharge. Pt states she typically travels back to [facility] form the hospital by EMS. Pt has Medical Assistance to cover that transportation.Pt is hoping to be discharged today. Pt gave permission for case management social worker to reach out to her daughter regarding d/c plans. Called dtr Patricia [phone] who confirmed plans for pt to return by EMS to [facility] when ready for discharge. Dtr would like a call when discharge date/time is determined. Called and emailed admissions coodinator, Marixa, at [facility] regarding possible return today. maintenance and repair worker to follow up as needed.
--- NOTE | 2024-06-30 14:35 | NUTR.NU ---
RDN attempted to visit with patient related to MD consult. RDN attempted visit multiple times, however patient not available. No intakes recorded yet to assess. Plan to discharge back to [facility] at discharge. RDN will continue to monitor and attempt to visit at later date.
--- NOTE | 2024-06-30 14:40 | PM.DS1 ---
DS: Providers Provider Date Seen: 06/30/24 Date of admission: 06/28/24 21:30 Primary care physician: Be John MD Admitting Clinician: Dennis Zurita MD Consults: 06/28/24 21:34 Consult to Physician [CONS] Routine Comment: Consulting Provider: Yung Diaz Has provider been notified: Yes 06/29/24 14:41 Consult to Nutrition [CONS] Routine Comment: Reason for consult:: Nutritional Consult 06/30/24 09:11 Consult to Wound Care [CONS] Routine Comment: Has tunneling wound near vulva Consulting Provider[facility] Attending Physician on discharge: RAAD Moore, BHUPENDRA [facility] Date of Discharge: 06/30/24 DS: Diagnosis Discharge Diagnosis (1) Cholecystitis, acute: Status: Acute Problem details: Ultrasound shows gallbladder is significantly distended and there is a positive sonographic Bilyl`s sign. No gallbladder wall thickening or pericholecystic fluid. Overall ultrasound findings are equivocal for acute cholecystitis. LFTs down trending General surgery consult, Dr. Diaz, plan for laparoscopic cholecystectomy with intraoperative cholangiogram later today Pain management, NPO, IVF Patient underwent laparoscopic cholecystectomy with intraoperative cholangiogram on 06/29. Remains stable, tolerating orals postoperatively. Discharge back to [facility] with 7 day course of Augmentin per General surgery. Recheck LFTs in 1 week. Outpatient follow-up with General surgery in 2 weeks. (2) Vomiting: Status: Resolved Problem details: In setting of acute cholecystitis, now resolved (3) Fever: Status: Resolved Problem details: Reported by half-way staff 3 days prior to admission. No recurrence (4) Acute kidney injury: Status: Resolved Problem details: Likely due to acute illness and poor oral intake. Continue to monitor with resuscitation. Last creatinine on record was 0.8 in September of 2021. Now creatinine is 1.7. Down trending, improved to 1.3, continue to monitor postoperatively Resolved. Creatinine 1.1 on day of discharge. 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 Unknown if this is a clinically significant finding requiring treatment UC growing >100,000 gram neg wagner Received ceftriaxone in ED, Zosyn is on hold, received a dose of Ancef preoperatively Await urine culture final results and sensitivities Urine culture and sensitivities pending at time of discharge, preliminarily growing > 100,000 gram-negative rods. Discharged with Augmentin postoperatively. Outpatient follow-up with PCP. (6) Infarction of spleen: Status: Acute Problem details: Seen on abdominal CT 06/28/2024. Cause for this is uncertain. Unclear if this is contributing to her abdominal pain. Monitor postoperatively Outpatient follow-up with PCP (7) Colitis: Status: Acute Problem details: Noted on CT. She has chronic occasional diarrhea. Unclear if these are related. Monitor Outpatient follow-up with PCP (8) Paraplegia: Status: Acute Problem details: Functional paraplegia due to lumbar spinal stenosis. Nonambulatory for at least 3 years (9) Neurogenic bladder: Status: Acute Problem details: Suprapubic catheter chronically (10) Spinal stenosis of lumbar region: Status: Acute Problem details: Severe causing paraplegia (11) Decubitus ulcer of sacral area: Status: Acute Problem details: Paraplegic. Monitor. Home cares (12) Chronic pain: Status: Acute Problem details: On chronic opioid therapy (13) Malnutrition: Status: Acute Problem details: Related to recent poor oral intake. Consult to Nutrition (14) Abnormal serum level of lipase: Status: Resolved Problem details: Mild elevation at 411. Possibly related to concern about biliary disease Improved to 145, 39 postoperatively (15) Other specified disorders of the skin and subcutaneous tissue: Status: Acute Problem details: Wound Care consult 06/30/24: Area of skin breakdown assessed to be a linear partial thickness area in her right perineum. Attempted to probe with sterile cotton tipped applicator as this was reported as a tunneling wound. There is no area of probing. Able to assess a 0.2mm depth to a clean wound bed. Scant, serous drainage present. Moist skin folds present. Silicone foam border dressing remains in place over wound, able to replace after assessment. Area is breakdown due to moisture. Recommendations: 1) Keep areas clean and dry. Good hygeine. 2) Ok to keep foam dressing in place for now. If does not stay in place you would not need to replace. 3) Utilization of Moisture wicking fabric/Interdry to bilateral groin folds would be of benefit to the patient. No need for creams/powders/ointments with the use of Interdry. 4) If facility is not able to utilize Interdry they would be able to use soft cloths such as pillow cases in the folds until this area resolves. Then good hygeine is needed to keep the folds from moisture breakdown. DS: Summary Hospital Course Hospital Course: Course of care and details as noted above. Status post cholecystectomy. Outpatient follow-up with General surgery in 2 weeks PCP follow-up for spleen infarct, colitis. Urine culture and sensitivities pending. Remainder of chronic medical comorbidities were monitored and managed with home medications. Status at Discharge Functional status at discharge: bed bound Overall status at discharge: patient is back to baseline Time Spent with Patient Time attestation: Total time spent providing and/or coordinating discharge services: Time spent: Greater than 30 minutes Exam Narrative: Exam Narrative: PHYSICAL EXAM General: Pleasant, conversant, NAD Cardiovascular: RRR Pulmonary: No dyspnea Abdomen; soft, appropriate postoperative incisional tenderness Neurological: Alert, answering questions appropriately Skin: Warm, dry. Const: Vital Signs, click to edit/add: Vital Signs - 24 hr 06/29/24 14:45 06/29/24 14:50 06/29/24 14:55 Temperature 97.2 F L 97.2 F L 97.2 F L Pulse Rate 75 74 74 Pulse Rate [Right Pulse Oximeter] Respiratory Rate 19 20 20 Blood Pressure 126/51 L 124/59 L 123/58 L Blood Pressure [Le ft Arm] Pulse Oximetry 99 98 98 Oxygen Delivery Ga thod Room Air Room Air Room Air 06/29/24 15:00 06/29/24 15:00 06/29/24 15:05 Temperature 97.2 F L 97.2 F L Pulse Rate 73 75 Pulse Rate [Right Pulse Oximeter] 82 Respiratory Rate 19 16 12 Blood Pressure 124/54 L 119/56 L Blood Pressure [Le ft Arm] Pulse Oximetry 98 98 Oxygen Delivery Ga thod Room Air Room Air 06/29/24 15:10 06/29/24 15:15 06/29/24 15:22 Temperature 98.3 F 98.3 F 97.4 F L Pulse Rate 75 75 76 Pulse Rate [Right Pulse Oximeter] Respiratory Rate 14 13 14 Blood Pressure 117/53 L 109/59 L 122/60 Blood Pressure [Le ft Arm] Pulse Oximetry 99 98 98 Oxygen Delivery Ga thod Room Air Room Air Room Air 06/29/24 15:30 06/29/24 15:45 06/29/24 16:00 Temperature 97.5 F L 97.5 F L 97.5 F L Pulse Rate 76 76 78 Pulse Rate [Right Pulse Oximeter] Respiratory Rate 16 16 16 Blood Pressure 124/62 109/68 120/66 Blood Pressure [Le ft Arm] Pulse Oximetry 99 96 100 Oxygen Delivery Me thod Room Air Room Air Room Air 06/29/24 16:15 06/29/24 16:45 06/29/24 17:15 Temperature 96.9 F L 96.6 F L 97 F L Pulse Rate 79 82 80 Pulse Rate [Right Pulse Oximeter] Respiratory Rate 18 16 16 Blood Pressure 124/65 115/64 109/76 Blood Pressure [Le ft Arm] Pulse Oximetry 100 100 100 Oxygen Delivery Ga thod Room Air Room Air Room Air 06/29/24 18:15 06/29/24 19:11 06/29/24 20:06 Temperature 97.2 F L 96.8 F L 96.8 F L Pulse Rate 81 82 81 Pulse Rate [Right Pulse Oximeter] Respiratory Rate 16 16 16 Blood Pressure 130/64 130/64 127/73 Blood Pressure [Le ft Arm] Pulse Oximetry 100 100 100 Oxygen Delivery Ga thod Room Air Room Air Room Air 06/29/24 21:13 06/29/24 23:00 06/29/24 23:45 Temperature 96.8 F L 96.7 F L Pulse Rate 81 Pulse Rate [Right Pulse Oximeter] Respiratory Rate 16 16 16 Blood Pressure 121/62 Blood Pressure [Le ft Arm] 128/67 Pulse Oximetry 100 99 Oxygen Delivery Ga thod Room Air Room Air 06/30/24 03:00 06/30/24 07:00 06/30/24 07:00 Temperature 97.1 F L 97.6 F Pulse Rate Pulse Rate [Right Pulse Oximeter] 92 92 Respiratory Rate 16 16 16 Blood Pressure Blood Pressure [Le ft Arm] 133/70 125/60 Pulse Oximetry 100 100 Oxygen Delivery Ga thod Room Air Room Air 06/30/24 11:00 Temperature 97.6 F Pulse Rate Pulse Rate [Right Pulse Oximeter] 88 Respiratory Rate 16 Blood Pressure Blood Pressure [Le ft Arm] 100/60 Pulse Oximetry 100 Oxygen Delivery Ga thod Room Air DS: Data Data Completed and Pending Pending studies at discharge: UC Labs on day of discharge: Labs from last 24 hours 06/30/24 06/30/24 10:00 05:58 WBC 13.87 H RBC 2.90 L Hgb 10.0 L Hct 29.5 L MCV 102 H MCH 35 H MCHC 34 RDW Coeff of Marlene 14.9 Plt Count 145 Neut % (Auto) 88.1 H Lymph % (Auto) 7.4 L [place] % (Auto) 2.5 Eos % (Auto) 0.0 Baso % (Auto) 0.1 Neut # (Auto) 12.20 H Lymph # (Auto) 1.00 [place] # (Auto) 0.30 Eos # (Auto) 0.00 Baso # (Auto) 0.00 Abs Immat Gran (auto) 0.30 Imm/Tot Granulo (auto) 1.9 Sodium 138 Potassium 4.0 Chloride 106 Carbon Dioxide 21 Anion Gap 11 BUN 19 Creatinine 1.1 Estimated Creat Clear 30.28 Estimated GFR 51 Glucose 78 Calcium 8.7 Total Bilirubin 0.7 Direct Bilirubin 0.6 H AST 59 H ALT 25 Alkaline Phosphatase 157 H Total Protein 5.5 L Albumin 2.7 L Lipase 39 Lab Acknowledgement Test Added Preliminary micro results at discharge 06/29/24 14:10 Aerobic Culture - Preliminary Gallbladder Fluid Culture in Progress Anaerobic Culture - Preliminary Culture in Progress 06/28/24 17:22 Blood Culture - Preliminary Blood NO GROWTH AFTER 24 HOURS 06/28/24 17:00 Blood Culture - Preliminary Blood NO GROWTH AFTER 24 HOURS 06/28/24 16:52 Urine Culture - Preliminary Urine Catheterized Gram negative wagner Gram negative wagner#2 Discharge Plan Discharge Disposition: Xfer SNF Discharge Location: [facility] Date of Admission: 06/28/24 21:30 Attending Provider on Discharge: Robina Leon Consulting Providers: Yugn Diaz; Yesy Bell; Rajani Oquendo Primary Care Provider: Be John Condition: Improved Anticipated Discharge Date/Time: 06/30/24 14:21 Discharge Medications: New amoxicillin-pot clavulanate 875-125 mg tablet 1 tab PO BID Qty: 14 0RF Continued sennosides [senna] 8.6 mg tablet 25.8 mg PO BID torsemide 10 mg tablet 30 mg PO DAILY acetaminophen 500 mg tablet 1,000 mg PO TID triamcinolone acetonide 0.1 % cream topical pantoprazole 40 mg tablet,delayed release (DR/EC) 40 mg PO DAILY oxybutynin chloride 5 mg tablet extended release 24hr 5 mg PO DAILY gabapentin 300 mg capsule 300 mg PO TID polyethylene glycol 3350 17 gram/dose powder 17 g PO DAILY oxycodone 5 mg tablet 10 mg PO Q6H PRN diclofenac sodium 1 % gel 2 g topical QID PRN Soothe Night Time Lubricant 80-20 % ointment ophthalmic (eye) potassium chloride 20 mEq tablet extended release 40 meq PO BID duloxetine 60 mg capsule,delayed release(DR/EC) 60 mg PO DAILY levothyroxine [Euthyrox] 112 mcg tablet 112 mcg PO DAILY diltiazem HCl 240 mg capsule,extended release 24hr 240 mg PO DAILY Discontinued levothyroxine 150 mcg tablet 150 mcg PO DAILY Discharge Orders: Discharge Order (Routine); Ordered 06/30/24 Ordered By: Robina Leon Consulting provider completed their portion of the discharge: Yes Activity Level: No Restrictions Activity Detail: As bed bound, no related restrictions Discharge Diet: Regular Follow Up Appointments: Yung Diaz MD [Staff Physician] - ([address] [facility] clinic with LFTs prior) Be John MD [Primary Care Provider] - Forms: [facility] Info Instructions Wound Care: Post op site (abdomen): per General Surgery Leave steri strips in place. Ok to shower 07/01/24. No soaking/baths for 2 weeks Right perineum: per [facility] 1) Keep areas clean and dry. Good hygeine 2) Ok to keep foam dressing in place for now. If does not stay in place you would not need to replace. 3) Utilization of Moisture wicking fabric/Interdry to bilateral groin folds would be of benefit to the patient. No need for creams/powders/ointments with the use of Interdry. Admit to: SNF Length of Stay: <30 days Can use facility standing orders?: Yes Code Status: DNR/DNI TEDs: Bilateral Knee Oxygen: No Lab Orders: Check LFTs in 7 days Orders are good >30 days: No Signature: Robina Leon, RAAD, PA-C [facility]
[2024-06-30] MEDS: LACTATED RINGERS 500 ML 250 ML IV (14:59)
[2024-06-30 15:00] VITALS: BP 92/62; PULSE 84; RESP 14; TEMP 36.4; O2SAT 100
--- NOTE | 2024-06-30 16:29 | PC.NURSE ---
Discharge assessment: VSS. Afebrile. Rates pain from a 6-0/10, pt repositioned and ice applied with relief. Pt denied use of PRN pain meds. Pt has intermittent confusion. Mepilex is C/D/I on sacrum. Mepilex is C/D/I on right groin fold. Steri strips are C/D/I on abdomen. Tolerating regular diet. IV removed and tip intact. Pt discharged at 1620 via EMS stretcher to [facility]. Pt belongings and discharge instructions gone through and signed. [employer] gave [id number] to Enma from [facility].
== END 2024-06-30 16:20 | DRG 263 ==
LOC: ED 19:47 → MEDSURG 20:21
PROVIDERS: Physician Assistant; Surgery; Admitting Provider Family Medicine; Emergency Provider Emergency Medicine; PCP Family Medicine; Visit Provider Family Medicine
PROC: 0FT44ZZ Resection of Gallbladder, Percutaneous Endoscopic Approach (ICD-10-PCS; CPT 47563; principal; 2024-06-29 12:30)
DX: K81.0 Acute cholecystitis (principal); K83.1 Obstruction of bile duct; K82.1 Hydrops of gallbladder; E44.0 Moderate protein-calorie malnutrition; N17.9 Acute kidney failure, unspecified; T83.511A Infection and inflammatory reaction due to indwelling urethral catheter, initial encounter; N39.0 Urinary tract infection, site not specified; B96.89 Other specified bacterial agents as the cause of diseases classified elsewhere; L98.8 Other specified disorders of the skin and subcutaneous tissue; Z68.32 Body mass index [BMI] 32.0-32.9, adult; L89.159 Pressure ulcer of sacral region, unspecified stage; D73.5 Infarction of spleen; K52.9 Noninfective gastroenteritis and colitis, unspecified; R53.2 Functional quadriplegia; M48.061 Spinal stenosis, lumbar region without neurogenic claudication; R74.8 Abnormal levels of other serum enzymes; N31.9 Neuromuscular dysfunction of bladder, unspecified; G89.29 Other chronic pain; Z79.891 Long term (current) use of opiate analgesic; F32.A Depression, unspecified
CPT/HCPCS: 00790; 36415; 70450; 71046; 74177; 74300; 76000; 76705; 80048; 80053; 80076; 81001; 82248; 83605; 83690; 83735; 84439; 84443; 85025; 86140; 87040; 87045; 87046; 87070; 87075; 87086; 87205; 87427; 87493; 87631; 88304; 93005; 99100; 99285; A9270; J0665; J0690; J0696; J1100; J2405; J2543; J2704; J3010; J3490; J7030; J7120; Q9967

== ENCOUNTER 2024-06-30 16:10 | Outpatient (CLI) | payer BC, SELFPAY | END 2024-06-30 16:11 | disposition home or self-care (01) | LOC: AMB 07-03 10:26 | PROVIDERS: PCP Family Medicine; Visit Provider Emergency Medicine | DX: K81.0 Acute cholecystitis (principal); R11.10 Vomiting, unspecified; G82.20 Paraplegia, unspecified | CPT/HCPCS: A0425; A0428 ==

== ENCOUNTER 2024-07-11 13:30 | Outpatient (CLI) | payer BC, SELFPAY | END 2024-07-11 13:31 | disposition home or self-care (01) | PROVIDERS: PCP Family Medicine; Visit Provider Family Medicine | DX: D72.829 Elevated white blood cell count, unspecified (principal) | CPT/HCPCS: A0425; A0427 ==

== ENCOUNTER 2024-07-11 13:54 | Emergency (ER) | payer BC, SELFPAY ==
[2024-07-11] VITALS (15 sets, daily range): BP systolic 124–136; BP diastolic 76–77; PULSE 87–100; RESP 18–20; TEMP 36.8; O2SAT 97–100; BMI 30.7
--- OUTSIDE RECORDS SUMMARY | 2024-07-11 13:56 | XMS_ITS | Clinical Summary ---
Author Organization [facility] Address [address] [place] [address] Care Team Providers Care Toolmaker Helper Name Role Phone Elsewhere, Pcp Primary Care Provider Unavailabl e Source Comments Patient records contain information from all sites at [facility]. For routine questions regarding patient records, call [phone] during business hours, M-F 8:00 AM - 5:00 PM Central Time. 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 eGFR Non-Black/Afric an Northern Irish 75 >=60 mL/min/BSA 06/05/2021 6:53 AM CDT [...] M.D. LAB BLOOD ADD-ON Final R esult [facility] [address] [place] [address], [facility] NPRG [place] [address] [place] [address] * (ABNORMAL) S-TSH (Thyroid-Stimulating Hormone - Sensitive) (05/28/2021 6:30 AM CDT) TSH, Sensitive 6.7(H) 0.3 - 4.2 mIU/L 05/28/2021 7:22 AM CDT NPRG Blood (Blood, Venous) 05/28/2021 6:30 AM CDT 05/28/2021 6:51 AM CDT us Soto Grider M.D. LAB BLOOD ADD-ON Final Result Performing Organization Address City/[facility]/ZIP Co de Phone Number [facility] [address] [place] [address], [facility] NPRG [place] [address] [place] [address] from Last 3 Months or Most Recently Relevant to Health Maintenance Insurance [facility] Advance Directives For more information, please contact: [phone] * DNR/DNI (Latest Code Status on File) [...] Answer Comments Full Code: Discussed Care Teams Toolmaker Helper Relationship Specialty Start Date End Date Elsewhere, Pcp PCP - General 06/08/21
--- OUTSIDE RECORDS SUMMARY | 2024-07-11 13:56 | XMS_ITS | Patient Health Record ---
Author Organization [facility] Address [address] [place] [address] Care Team Providers Care Recovery Auditor Name Role Phone FRANCOISE BRO Primary Care Provider Dilip ENRIQUE Hamilton Unavailable [phone] Reason For Referral No Information Medications Medication SIG (Take, Route, Frequency, Duration) Notes Start Date End Date Status Ranitidine HCl 150 MG 1 tablet at bedtim e Orally Once a day Unknown Pantoprazole Sodium 40 MG 1 tablet Orall y Once a day Unknown Benadryl Allergy 25 MG 1 tablet as neede d Orally every 8 hrs Unknown Tylenol 8 Hour 650 MG 2 tablets as neede d Orally every 8 hrs Unknown Percocet 5-325 MG 1 tablet as needed Orally every 8 hrs for 30 days 04/07/2017 Active HYDROcodone-Acetaminophen 5-325 MG 1 tablet as needed Orally every 6 hrs Unknown Levothyroxine Sodium 112 MCG 1 tablet on an empty stomach in the morning Orally Once a day Unknown Calcium Plus Vitamin D Unknown Turmeric Unknown hydroCHLOROthiazide 25 MG 1 tablet in th e morning Orally Once a day Unknown Cartia XT 240 MG 1 capsule Orally Onc e a day Unknown Gabapentin 100 MG 1 capsule Orally Onc e a day, BID x 1wk, then TID there after for 30 day(s) 03/10/2017 Unknown Simvastatin 20 MG 1 tablet in the evening Orally Once a day Unknown Alendronate Sodium 70 MG 1 tablet Orally Unknown Social History Tobacco Use: Social History Observation Description Date Details (start date - stop date) Never Smoker NA - NA Tobacco Use/Smoking Question Answer Notes Are you a nonsmoker Problems Problem Type SNOMED Code ICD Code Onset Dates Problem Status W/U Status Risk Notes Problem Chronic pain (02101430) Other chronic pain (G89.29) Active confirmed Problem 77540825 Pain in left kne e (M25.562) Active confirmed Problem Other intervertebral disc degeneration, lumbar region (M51.36) Active confirmed Problem Low back pain (980273852) Low back pain (M54.5) Active confirmed Problem 159201223 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 Problem 05456990 Pain of right hi p joint (M25.551) Active confirmed Plan Of Treatment No Information Insurance Providers Payer Name Payer Address Payer Phone Subscriber Number Group Number Insured Name Patient Relationship to Insured Coverage Start Date Coverage End Date [facility] [place] [employer]([facility]) [address] [address] [place] [phone] [id number] JOSEPH ARMSTRONG Self - patient is the insured 2015 Medical (General) History Medical History History ICD Code hypertension, benign Surgical History Surgery Date(Month/Year) hysterectomy right hip replacement x3
--- NOTE | 2024-07-11 14:28 | CRLHL7_ITS ---
For Patients: As a result of the Century Cures Act, medical imaging exams and procedure reports are released immediately into your electronic medical record. You may view this report before your referring provider. If you have questions, please contact your health care provider. INDICATION: Abdominal pain. TECHNIQUE: Multiplanar CT examination of the abdomen and pelvis was performed after the administration of 77 mL Isovue 370 intravenous contrast. COMPARISON: CT abdomen pelvis 06/28/2024. FINDINGS: Lower chest: No focal consolidation. Normal heart size. Small bilateral pleural effusions. Small hiatal hernia. No pneumothorax. Liver: Diffuse hepatic steatosis. Gallbladder: Cholecystectomy. Biliary: Unremarkable. Pancreas: Within normal limits. Spleen: Unremarkable. Adrenal glands: Unremarkable. Renal/ureters/bladder: Mild renal atrophy. Kidneys are symmetrically enhancing. No obstructive uropathy. No hydronephrosis or obstructive urinary calculi. No suspicious renal masses. The ureters appear unremarkable. The bladder is collapsed around a Rico catheter balloon. Pelvis: No pelvic masses. Gastrointestinal: Severe diffuse colonic wall thickening involving the descending and sigmoid colon, as well as the rectum. There is adjacent pericolonic and perirectal fat stranding. Nonvisualized appendix. Sigmoid diverticulosis. Mild colonic stool burden. Vasculature: No aortic aneurysm. The portal vein remains patent. Severe aortoiliac atherosclerotic calcifications. Lymph nodes: No pathologic lymphadenopathy by size criteria. Peritoneum: Trace pelvic free fluid, likely reactive. No pneumoperitoneum. No drainable fluid collections. Abdominal wall/soft tissues: Mild presacral edema. Small fat containing umbilical hernia. Bones: No acute osseous abnormalities status post total right hip arthroplasty. Diffuse osteopenia. Posterior instrumented fusion from L2-S1. IMPRESSION: 1. Severe diffuse descending and sigmoid colonic wall thickening, suggestive of a nonspecific infectious versus inflammatory colitis. 2. Sigmoid diverticulosis without convincing evidence of acute sigmoid diverticulitis. 3. Severe rectal wall thickening with presacral edema, suggestive of a nonspecific proctitis. 4. Cholecystectomy without evidence of an infected biloma. No drainable abscess identified. 5. Small bilateral pleural effusions. 6. Small hiatal hernia. 7. Diffuse hepatic steatosis. Please note that all CT scans at this facility use dose modulation, iterative reconstruction, and/or weight-based dosing when appropriate to reduce radiation dose to as low as reasonably achievable. Dictated by Khadar Linares MD @ 07/11/2024 4:00:08 PM (Electronically Signed)
--- NOTE | 2024-07-11 14:30 | ED.GENADULT ---
HPI - General Adult General Date Seen: 07/11/24 Chief complaint: Post Op Complication Stated complaint: infection Time Seen by Provider: 07/11/24 14:14 Source: patient Mode of arrival: EMS Limitations: no limitations History of Present Illness HPI narrative: Patient is a 78-year-old paraplegic with a neurogenic bladder and chronic supra pubic catheter presenting to the emergency department from her halfway for concern of postsurgical infection. She had cholecystectomy done 2 weeks ago here in [place]. States she has been feeling well since then. They have been monitoring her white blood count at [facility] and states it has been trending up. Do this they were concerned about possible infection. She does have some mild discomfort with palpation of the entire abdomen. She states chronically she does has lower abdomen tenderness in the upper abdomen tenderness does seem to be new. Unsure if this has been going on since the surgery or for this more recent. Has not really noticed much discharged with than a very small amount coming from the surgical site at the umbilicus. Has not noticed any fevers but has had chills for the past couple days. She states she has never been feeling cold like that before. Denies chest pain, shortness of breath, diarrhea, constipation, fatigued. States she otherwise feels at her baseline. Related Data Home Medications ?Medication ?Instructions ?Recorded ?Confirmed acetaminophen 500 mg tablet 1,000 mg PO TID 06/28/24 06/28/24 diclofenac sodium 1 % topical gel 2 g topical QID PRN 06/28/24 06/29/24 duloxetine 60 mg capsule,delayed 60 mg PO DAILY 06/28/24 06/28/24 release gabapentin 300 mg capsule 300 mg PO TID 06/28/24 06/29/24 levothyroxine 112 mcg tablet 112 mcg PO DAILY 06/28/24 06/28/24 (Euthyrox) oxybutynin chloride 5 mg 5 mg PO DAILY 06/28/24 06/28/24 tablet,extended release 24 hr oxycodone 5 mg tablet 10 mg PO Q6H PRN 06/28/24 06/28/24 pantoprazole 40 mg tablet,delayed 40 mg PO DAILY 06/28/24 06/28/24 release polyethylene glycol 3350 17 17 g PO DAILY 06/28/24 06/28/24 gram/dose oral powder potassium chloride 20 mEq 40 meq PO BID 06/28/24 06/28/24 tablet,extended release sennosides 8.6 mg tablet (senna) 25.8 mg PO BID 06/28/24 06/28/24 torsemide 10 mg tablet 30 mg PO DAILY 06/28/24 06/28/24 triamcinolone acetonide 0.1 % applic topical 06/28/24 topical cream white petrolatum-mineral oil 80 ophthalmic (eye) 06/28/24 %-20 % eye ointment (Soothe Night Time Lubricant) diltiazem HCl 240 mg capsule,24 240 mg PO DAILY 06/29/24 06/29/24 hr,extended release Previous Rx's ?Medication ?Instructions ?Recorded amoxicillin 875 mg-potassium 1 tab PO BID #14 tabs 06/30/24 clavulanate 125 mg tablet ciprofloxacin HCl 500 mg tablet 500 mg PO BID #10 tabs 07/11/24 (Cipro) metronidazole 500 mg tablet 500 mg PO Q8H #15 tabs 07/11/24 Allergies Allergy/AdvReac Type Severity Reaction Status Date / Time No Known Drug Allergies Allergy Verified 06/28/24 16:19 Review of Systems Status of ROS: Reports: 10 or more systems reviewed and unremarkable except as noted in History and below [facility] Medical History Malnutrition ?E46 - Unspecified protein-calorie malnutrition (ICD-10) Presence of suprapubic catheter ?Z93.59 - Other cystostomy status (ICD-10) Chronic pain ?G89.29 - Other chronic pain (ICD-10) Depression ?F32.A - Depression, unspecified (ICD-10) Spinal stenosis of lumbar region ?M48.061 - Spinal stenosis, lumbar region without neurogenic claudication (ICD-10) Decubitus ulcer of sacral area ?L89.159 - Pressure ulcer of sacral region, unspecified stage (ICD-10) Neurogenic bladder ?N31.9 - Neuromuscular dysfunction of bladder, unspecified (ICD-10) Visual loss ?H54.7 - Unspecified visual loss (ICD-10) Paraplegia ?G82.20 - Paraplegia, unspecified (ICD-10) Surgical History History of hysterectomy ?Z90.710 - Acquired absence of both cervix and uterus (ICD-10) Hx of appendectomy ?Z90.49 - Acquired absence of other specified parts of digestive tract (ICD-10) H/O lumbosacral spine surgery ?Z98.890 - Other specified postprocedural states (ICD-10) Social History Narrative: Lives at [address] [address]. Nonambulatory for at least 3 years. Secondary to spinal stenosis. Suprapubic catheter due to neurogenic bladder. Code status is DNR. Daughter Milli manriquez ir is healthcare power of divorce attorney. What is your current living situation?: I presently have a place to live Problems where you live: no known problems Problems where you live details: n/a In the past 12 months, utilities in danger of being shut off: no In past 12 months, lack of transportation kept you from medical appts, meetings, work, or getting things needed for daily living: no In the past 12 mos, have been you worried that your food would run out before you had money to buy more?: never true In the past 12 mos, the food you bought just didn't last and you didn't have money to buy more?: never true Highest level of school completed/degree received: high school graduate Smoking Status: Never smoker Do you use any of these nicotine containing products: None How often do you have a drink containing alcohol: never AUDIT-C Alcohol total score: 0 Non-prescribed substance use: denies use Caffeine: No How often does anyone, including family, friends and others, physically hurt you: never How often does anyone, including family, friends and others, insult or talk down to you: never How often does anyone, including family, friends and others, threaten you with harm: never How often does anyone, including family, friends and others, scream or curse at you: never Exam Narrative: Exam Narrative: Const: Well-nourished, Well-developed, in mild distress Eyes: PERRL, no conjunctival injection, and symmetrical lids HENT: Atraumatic external nose and ears. Moist mucous membranes. Neck: Symmetric, trachea midline, No thyromegaly. CVS: RRR, No murmurs or gallops. Peripheral pulses 2+ and equal in all extremities RESP: Unlabored respiratory effort. Clear to auscultation bilaterally. GI: diffuse abdominal tenderness with some mild guarding, Nondistended, No rebound. MSK:Extremities w/o deformity, Normal Active ROM Skin: Well-healing surgical sites other than a very small 2 mm area of dehiscence her umbilical surgical site on the left most lateral aspect. Possibly a very small amount of drainage to see in the umbilicus. Stage I pressure ulcer seen on the coccyx. No signs of infection Neuro: Normal Muscle tone, No focal neurological deficits. Psych: Awake, Alert, & Oriented x3. Appropriate mood and affect. Const: Vital Signs, click to edit/add: Vital Signs - 24 hr 07/11/24 14:05 07/11/24 14:47 07/11/24 15:00 Temperature 98.2 F Pulse Rate 96 98 Pulse Rate [Pulse Oximeter] 96 Respiratory Rate 20 Blood Pressure [Ri ght Forearm] 136/77 Pulse Oximetry 99 98 98 Oxygen Delivery Me thod Room Air 07/11/24 15:17 07/11/24 15:30 Temperature Pulse Rate 97 96 Pulse Rate [Pulse Oximeter] Respiratory Rate 18 Blood Pressure [Ri ght Forearm] Pulse Oximetry 99 100 Oxygen Delivery Me thod Course Vital Signs Vital signs: Initial Vital Signs Temperature 98.2 F 07/11/24 14:05 Temperature Source Temporal Artery Scan 07/11/24 14:05 Pulse Rate 96 07/11/24 14:05 Respiratory Rate 20 07/11/24 14:05 Blood Pressure 136/77 07/11/24 14:05 Blood Pressure Mean 96 07/11/24 14:05 Pulse Oximetry 99 07/11/24 14:05 Oxygen Delivery Method Room Air 07/11/24 14:05 Vital Signs Temperature 98.2 F 07/11/24 14:05 Pulse Rate 96 07/11/24 14:05 Respiratory Rate 20 07/11/24 14:05 Blood Pressure 136/77 07/11/24 14:05 Pulse Oximetry 99 07/11/24 14:05 Oxygen Delivery Method Room Air 07/11/24 14:05 Temperature 98.2 F 07/11/24 14:05 Pulse Rate 96 07/11/24 15:30 Respiratory Rate 18 07/11/24 15:30 Blood Pressure 136/77 07/11/24 14:05 Pulse Oximetry 100 07/11/24 15:30 Oxygen Delivery Method Room Air 07/11/24 14:05 Medications Administered Medications: Discontinued Medications Generic Name Dose Route Start Last Admin Trade Name Kalyani PRN Reason Stop Dose Admin Lactated Ringer's 1,000 mls @ 1,000 mls/hr 07/11/24 15:54 07/11/24 18:31 Lactated Ringers 1000 Ml IV 07/11/24 16:53 Infused .Q1H ONE Infusion Medical Decision Making MDM Narrative Medical decision making narrative: Patient is a 79-year-old female presenting to the emergency department for an elevated white count. She has no other signs of infection at this time. Denies fevers but has had some chills. She does have abdominal tenderness but considered she just had laparoscopic surgery this was not a be surprising. Is not more fatigued than normal. Will do a broad workup. Will order a CBC, CMP. CBC returns with a white count of 16. At discharge her white count was around 14. Added on a lactate. I did give 1 L fluids but again I do not see any obvious signs of infection or so for off antibiotics. She is hypertensive and heart rate is around 96 and I do not believe the full 30 ml/kg is warranted. Blood cultures also ordered. Her CMP shows no concerning abnormalities. Lipase was within normal limits. Lactate came back at 3.2. CT scan returned showing severe colitis and possibly severe proctitis. Findings were relatively nonspecific. I did speak to the on-call general surgeon, Dr. Rosenthal, who performed her previous surgery and she has not think the surgery is related to her current issues. She did mention that proctitis this is likely not infectious at this time. Colitis could also be from dehydration or constipation. Patient does states she is having a normal bowel movement daily. I did speak to the on-call hospitalist who states she can not admit the patient but would be considered an observation stay since we do not have a definitive source for the infection. Did contemplate possibly doing a urinalysis but she has a suprapubic Rico and this is likely colonized any way. Will add on a procalcitonin. This did come back at 3.46 but still is nonspecific in the cannot definitively say she has a infection. Still will only be observation status family would prefer she goes back to [facility] if she would be only observation. I will discharge them home with antibiotics as a precautionary. Lab Data Labs: Lab Results 07/11/24 07/11/24 07/11/24 Range/Units 14:43 16:08 16:30 WBC 16.10 H (4.50-11.00) K/uL RBC 3.09 L (4.00-5.20) m/uL Hgb 10.5 L (12.0-16.0) gm/dL Hct 31.8 L (33.0-51.0) % MCV 103 H (80-100) fL MCH 34 (26-34) pg MCHC 33 (32-36) gm/dL RDW Coeff of Marlene 15.7 H (11.5-15.5) % Plt Count 249 (140-440) K/uL Neut % (Auto) 79.2 H (42.0-72.0) % Lymph % (Auto) 12.8 L (20-44) % [place] % (Auto) 6.2 (0.0-11.0) % Eos % (Auto) 0.7 (0.0-7.0) % Baso % (Auto) 0.5 (0.0-3.0) % Neut # (Auto) 12.80 H (1.7-7.0) K/uL Lymph # (Auto) 2.10 (0.90-2.90) K/uL [place] # (Auto) 1.00 H (0.00-0.90) K/UL Eos # (Auto) 0.10 (0.00-0.50) K/uL Baso # (Auto) 0.10 (0.00-0.30) K/uL Abs Immat Gran (auto) 0.10 (0.00-0.30) K/uL Imm/Tot Granulo (auto) 0.6 % Sodium 137 (135-149) mmol/L Potassium 4.2 (3.6-5.1) mmol/L Chloride 103 (96-114) mmol/L Carbon Dioxide 27 (20-32) mmol/L Anion Gap 7 (7-15) mEq/L BUN 12 (7-30) mg/dL Creatinine 1.0 (0.5-1.5) mg/dL Estimated Creat Clear 32.77 Estimated GFR 57 ml/min Glucose 95 (60-115) mg/dL Lactate 3.2 H (0.5-1.9) mmol/L Calcium 8.2 L (8.4-10.6) mg/dL Total Bilirubin 0.6 (0.1-1.5) mg/dL Direct Bilirubin 0.5 (0.0-0.5) mg/dL AST 40 H (12-35) U/L ALT 29 (4-35) U/L Alkaline Phosphatase 140 (40-150) U/L Total Protein 5.8 L (6.0-8.3) g/dL Albumin 3.1 L (3.3-5.0) g/dL Lipase 94 (23-300) U/L Procalcitonin 3.46 H (<0.50) ng/mL Lab Acknowledgement Test Added POC Creatinine 1.1 (0.6-1.3) mg/dl 07/11/24 07/11/24 Range/Units 16:41 18:22 WBC (4.50-11.00) K/uL RBC (4.00-5.20) m/uL Hgb (12.0-16.0) gm/dL Hct (33.0-51.0) % MCV (80-100) fL MCH (26-34) pg MCHC (32-36) gm/dL RDW Coeff of Marlene (11.5-15.5) % Plt Count (140-440) K/uL Neut % (Auto) (42.0-72.0) % Lymph % (Auto) (20-44) % [place] % (Auto) (0.0-11.0) % Eos % (Auto) (0.0-7.0) % Baso % (Auto) (0.0-3.0) % Neut # (Auto) (1.7-7.0) K/uL Lymph # (Auto) (0.90-2.90) K/uL [place] # (Auto) (0.00-0.90) K/UL Eos # (Auto) (0.00-0.50) K/uL Baso # (Auto) (0.00-0.30) K/uL Abs Immat Gran (auto) (0.00-0.30) K/uL Imm/Tot Granulo (auto) % Sodium (135-149) mmol/L Potassium (3.6-5.1) mmol/L Chloride (96-114) mmol/L Carbon Dioxide (20-32) mmol/L Anion Gap (7-15) mEq/L BUN (7-30) mg/dL Creatinine (0.5-1.5) mg/dL Estimated Creat Clear Estimated GFR ml/min Glucose (60-115) mg/dL Lactate 3.1 H (0.5-1.9) mmol/L Calcium (8.4-10.6) mg/dL Total Bilirubin (0.1-1.5) mg/dL Direct Bilirubin (0.0-0.5) mg/dL AST (12-35) U/L ALT (4-35) U/L Alkaline Phosphatase (40-150) U/L Total Protein (6.0-8.3) g/dL Albumin (3.3-5.0) g/dL Lipase (23-300) U/L Procalcitonin (<0.50) ng/mL Lab Acknowledgement Test Added POC Creatinine (0.6-1.3) mg/dl Imaging Data CT scan abdomen pelvis: Radiologist's impression: 1. Severe diffuse descending and sigmoid colonic wall thickening, suggestive of a nonspecific infectious versus inflammatory colitis. 2. Sigmoid diverticulosis without convincing evidence of acute sigmoid diverticulitis. 3. Severe rectal wall thickening with presacral edema, suggestive of a nonspecific proctitis. 4. Cholecystectomy without evidence of an infected biloma. No drainable abscess identified. 5. Small bilateral pleural effusions. 6. Small hiatal hernia. 7. Diffuse hepatic steatosis. Please note that all CT scans at this facility use dose modulation, iterative reconstruction, and/or weight-based dosing when appropriate to reduce radiation dose to as low as reasonably achievable. Dictated by Khadar Linares MD @ 07/11/2024 4:00:08 PM Discharge Plan Discharge Clinical Impression: Leukocytosis Qualifiers: Leukocytosis type: unspecified Qualified Code(s): D72.829 - Elevated white blood cell count, unspecified Patient Disposition: Home, Self-Care Condition: Stable Instructions: Leukocytosis (ED) Additional Instructions: At this time I cannot definitively say if he have infection or not. Due to that I will place you on empiric antibiotics in case there is some underlying infection. Return to emergency department for new or worsening symptoms Prescriptions: New ciprofloxacin HCl [Cipro] 500 mg tablet 500 mg PO BID Qty: 10 0RF metronidazole 500 mg tablet 500 mg PO Q8H Qty: 15 0RF No Action sennosides [senna] 8.6 mg tablet 25.8 mg PO BID torsemide 10 mg tablet 30 mg PO DAILY acetaminophen 500 mg tablet 1,000 mg PO TID triamcinolone acetonide 0.1 % cream topical pantoprazole 40 mg tablet,delayed release (DR/EC) 40 mg PO DAILY oxybutynin chloride 5 mg tablet extended release 24hr 5 mg PO DAILY gabapentin 300 mg capsule 300 mg PO TID polyethylene glycol 3350 17 gram/dose powder 17 g PO DAILY oxycodone 5 mg tablet 10 mg PO Q6H PRN diclofenac sodium 1 % gel 2 g topical QID PRN Soothe Night Time Lubricant 80-20 % ointment ophthalmic (eye) potassium chloride 20 mEq tablet extended release 40 meq PO BID duloxetine 60 mg capsule,delayed release(DR/EC) 60 mg PO DAILY levothyroxine [Euthyrox] 112 mcg tablet 112 mcg PO DAILY diltiazem HCl 240 mg capsule,extended release 24hr 240 mg PO DAILY amoxicillin-pot clavulanate 875-125 mg tablet 1 tab PO BID Qty: 14 0RF Follow Up/Referrals: Be John MD [Primary Care Provider, Family Practice] Stand Alone [facility]: [facility] Info Inst[facility]
[2024-07-11 14:50] LABS: Creatinine, Point-of-Care* 1.1 mg/dl (0.6-1.3)
[2024-07-11 14:52] LABS: Basophils Percent Auto 0.5 % (0.0-3.0); Eosinophils Percent Auto 0.7 % (0.0-7.0); Hematocrit 31.8 % (33.0-51.0); Hemoglobin* 10.5 gm/dL (12.0-16.0); Immature Granulocytes Pct Auto 0.6 %; Lymphocytes Percent Auto 12.8 % (20-44); Mean Corpuscular HGB Conc 33 gm/dL (32-36); Mean Corpuscular Hemoglobin 34 pg (26-34); Mean Corpuscular Volume 103 fL (80-100); Monocytes Percent Auto 6.2 % (0.0-11.0); Neutrophils Percent Auto 79.2 % (42.0-72.0); Platelet Count* 249 K/uL (140-440); RDW Coefficient of Variation % 15.7 % (11.5-15.5); Red Blood Count 3.09 m/uL (4.00-5.20)
[2024-07-11 15:02] LABS: Slide Review Reflex No
[2024-07-11 15:04] LABS: Chloride* 103 mmol/L (96-114); Potassium* 4.2 mmol/L (3.6-5.1); Sodium* 137 mmol/L (135-149)
[2024-07-11 15:07] LABS: Anion Gap 7 mEq/L (7-15); Blood Urea Nitrogen* 12 mg/dL (7-30); Calcium* 8.2 mg/dL (8.4-10.6); Carbon Dioxide* 27 mmol/L (20-32); Est. Creatinine Clearance* 32.77; Estimated Glomerular Filt Rate 57 ml/min; Glucose* 95 mg/dL (60-115)
[2024-07-11 16:13] LABS: Lactate Sepsis w/Reflex* 3.2 mmol/L (0.5-1.9)
[2024-07-11] MEDS: LACTATED RINGERS 1000 ML 1,000 ML IV (16:44)
[2024-07-11 16:49] LABS: Albumin* 3.1 g/dL (3.3-5.0)
[2024-07-11 16:52] LABS: Alanine Aminotransferase* 29 U/L (4-35); Alkaline Phosphatase* 140 U/L (40-150); Aspartate Amino Transferase* 40 U/L (12-35); Bilirubin Direct* 0.5 mg/dL (0.0-0.5); Bilirubin Total* 0.6 mg/dL (0.1-1.5); Total Protein* 5.8 g/dL (6.0-8.3)
[2024-07-11 16:53] LABS: Lipase* 94 U/L (23-300)
--- NOTE | 2024-07-11 16:59 | ED.NURSE ---
Rico bag emptied with 690 mls urine.
[2024-07-11 17:10] LABS: Procalcitonin* 3.46 ng/mL (<0.50)
[2024-07-11 18:26] LABS: Lactate Sepsis 2 Hour 3.1 mmol/L (0.5-1.9)
== END 2024-07-11 19:23 | disposition home or self-care (01) ==
PROVIDERS: Emergency Provider Student in an Organized Health Care Education/Training Program; PCP Family Medicine
DX: D72.829 Elevated white blood cell count, unspecified (principal); K52.9 Noninfective gastroenteritis and colitis, unspecified
CPT/HCPCS: 36415; 74177; 80048; 80076; 82565; 83605; 83690; 84145; 85025; 87040; 99284; J7120; Q9967

== ENCOUNTER 2024-07-11 19:08 | Outpatient (CLI) | payer BC, SELFPAY | END 2024-07-11 19:09 | disposition home or self-care (01) | PROVIDERS: PCP Family Medicine; Visit Provider Emergency Medicine Emergency Medical Services | DX: D72.829 Elevated white blood cell count, unspecified (principal) | CPT/HCPCS: A0425; A0428 ==

== ENCOUNTER 2024-09-01 15:36 | Outpatient (REF) | payer BC, SELFPAY ==
[2024-09-01 15:51] LABS: Appearance Urine Slightly Cloudy (Clear)
--- OUTSIDE RECORDS SUMMARY | 2024-09-02 00:10 | XMS_ITS | Patient Health Record ---
Author Organization 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 Name Role Phone Britta Frost Primary Care Provider Buddy Mills MD, Dr Og Unavailable Unavailable Allergies Allergen (clinical drug ingredient) Drug/Non Drug Allergy documented on EMR Reaction Allergy Type Onset Date Status none (uncoded) Unknown Allergy Activ e Reason For Referral No Information Medications Medication SIG (Take, Route, Frequency, Duration) Notes Start Date End Date Status Diltiazem HCl CR 240 MG/24HR Capsule Extended Release 24 Hour 1 capsule on an empty stomach in the morning Orally Once a day Active Pantoprazole Sodium 40 MG Tablet Delayed Release Oral; Duration: 90 Active Benadryl Active Tylenol Arthritis Pain Active Glucosamine Active oxyCODONE HCl Active Cartia XT 240 MG Capsule Extended Release 24 Hour Oral; Duration: 90 Active Ranitidine HCl 150 MG Tablet Oral; Duration: 90 Active Levothyroxine Sodium 125 MCG Tablet Oral; Duration: 90 Active hydroCHLOROthiazide 25 MG Tablet Oral; Duration: 90 Active Social History Tobacco Use: Social History Observation Description Date Details (start date - stop date) Never Smoker NA - NA Social History Drugs/Alcohol: Social Info Question Answer Notes Alcohol Screen Did you have a drink containing alcohol in the past year? 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) Active confirmed Problem Other mechanical complication of prosthetic joint implant (996.47) Active confirmed Problem Arthralgia of the pelvic region and thigh (138455048) Pain in joint, pelvic region and thigh (719.45) Active confirmed Problem Shoulder joint pain (047002536) Pain in joint, shoulder region (719.41) Active confirmed Problem Surgical follow-up (806248134) Aftercare following surgery of the musculoskeletal system, NEC (V58.78) Active confirmed Problem Aftercare (911309136) Aftercare following joint replacement (V54.81) Active confirmed Problem Total replacement of hip (87631606) Hip joint replacement by other means (V43.64) Active confirmed Problem Localized osteoarthrosis uncertain if primary OR secondary (42835526) Localized osteoarthrosis not specified whether primary or secondary, shoulder region (715.31) Active confirmed 2 Problem Shoulder stiff (261961415) Stiffness of joint, not elsewhere classified, shoulder region (719.51) Active confirmed Problem 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, not elsewhere classified, 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 confirmed Problem 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) Varus deformity, not elsewhere classified, left knee (M21.162) Active confirmed Problem Pain of right knee region (finding) (600166770811555) Pain in right knee (M25.561) Active confirmed Problem Stiffness of right knee (544939235624271) Stiffness of right knee, not elsewhere classified (M25.661) Active confirmed Problem Knee stiff (281262783) Stiffness of left knee, not elsewhere classified (M25.662) Active confirmed Problem Abnormal gait (19961780) Other abnormalities of gait and mobility (R26.89) Active confirmed Problem History of musculoskeletal operation (412175067) Aftercare following joint replacement surgery (Z47.1) Active confirmed Problem Total hip replacement Prosthesis (038052512) Presence of right artificial hip joint (Z96.641) Active confirmed Problem Osteoarthritis of knee (112839632) Primary osteoarthritis of both knees (M17.0) Active confirmed Problem Left knee pain (315408970329822) Left knee pain (M25.562) Active confirmed Plan Of Treatment No Information Insurance Providers Payer Name Payer Address Payer Phone Subscriber Number Group Number Insured Name Patient Relationship to Insured Coverage Start Date Coverage End Date [employer] Ad[employer]age [address] [address] [place] [address] [id number] Holli Rai Self - patient is the insured 7 Medications Administered Medication Instructions Date of Administration Dosage Notes BETAMETHSN ACTAT&SOD PHOSPH-3MG 12/19/2015 1 mL BETAMETHSN ACTAT&SOD PHOSPH-3MG 03/04/2016 1 mL Medical (General) History Medical History History ICD Code anemia, pt portal: No diabetes, pt portal: No kidney, pt portal: No bladder, pt portal: No high blood pressure, pt portal: Yes high cholesterol, pt portal: Yes asthma, pt portal: No neuro disorder/seizures, pt portal: No depression, pt portal: Yes stroke, pt portal: No thyroid disorder, pt portal: Yes ulcer/stomach problems, pt portal: No arthritis, pt portal: Yes gout, pt portal: No phlebitis/blood clots, pt portal: No AIDS/HIV, pt portal: No substance abuse, pt portal: No fibromyalgia, pt portal: No , pt portal: No bleeding, pt portal: No anesthesia rxn, pt portal: No Surgical History Surgery Date(Month/Year) back surgery back surgery 2000 knee hysterectomy-partial TMJ hip-replacement 2008 hip-revision 01/23/2013 Right hip revision 12/2013 No hx of adverser reaction to anesthesia Hospitalization History Reason Date(Month/Year) Vertigo 2006
--- OUTSIDE RECORDS SUMMARY | 2024-09-02 00:10 | XMS_ITS | Patient Health Record ---
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 Name Role Phone FRANCOISE BRO Primary Care Provider Dilip ENRIQUE Hamilton Unavailable [phone] Reason For Referral No Information Medications Medication [...] 1 tablet as needed Orally every 8 hrs; Duration: 30 days 04/07/2017 Active HYDROcodone-Acetaminophen 5-325 MG [...] day, BID x 1wk, then TID there after; Duration: 30 day(s) 03/10/2017 Unknown Simvastatin 20 MG [...] W/U Status Risk Notes Problem Chronic pain (81604880) Other chronic pain (G89.29) Active confirmed Problem Pain of left knee joint (finding) (522132014624242) Pain in left knee (M25.562) Active confirmed Problem Degeneration of lumbar intervertebral disc (74555373) Other intervertebral disc degeneration, lumbar region (M51.36) Active confirmed Problem Low back pain (577896019) Low back pain (M54.5) Active confirmed Problem Failed back syndrome (14041250) 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 Problem Pain of right hip joint (581890918278639) Pain of right hip joint (M25.551) Active confirmed Plan Of Treatment No Information Insurance Providers Payer Name Payer Address Payer Phone Subscriber Number Group Number Insured Name Patient Relationship to Insured Coverage Start Date Coverage End Date [facility] [place] [employer] [address] [address] [place] [phone] [id number] JOSEPH ARMSTRONG Self - patient is the insured 2015 Medical (General) History Medical History History ICD Code hypertension, benign Surgical History Surgery Date(Month/Year) hysterectomy right hip replacement x3
--- OUTSIDE RECORDS SUMMARY | 2024-09-02 00:10 | XMS_ITS | Clinical Summary ---
Author Organization [facility] Address [address] [place] [address] Care Team Providers Care Homebound Teacher Name Role Phone Elsewhere, Pcp Primary Care Provider Unavailabl e Source Comments Patient records contain information from all sites at [facility]. For routine questions regarding patient records, call [phone] during business hours, M-F 8:00 AM - 5:00 PM Central Time. 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 Gender Identity Not on file Sexual Orientation [...] Additional history exists Sodium Level 06/05/2022 06/05/2021, 05/17, 05/25/2021, Additional history exists Depression Screening (Annual PHQ-2) 02/16/2024 Fall Risk Screen (Annual) 02/16/2024 COVID-19 Vaccine ( season) 2024 12/10/2023, 06/15/2023, 12/08/2022, Additional history exists Influenza Vaccine (#1) 2024 , 12/08/2022, 11/26/2021, Additional history exists RSV vaccine - [...] 06/05/2021 6:53 AM CDT NPRG eGFR-Black/Afri can Japanese 86 >=60 mL/min/BSA 06/05/2021 6:53 AM CDT NPRG Comment: ----ADDITIONAL INFORMATION---- Estimated GFR calculated using the 2009 CKD_EPI creatinine equation. eGFR Non-Black/Afric an Japanese 75 >=60 mL/min/BSA 06/05/2021 6:53 AM CDT [...] M.D. LAB BLOOD ADD-ON Final R esult [facility] [address] [place] [address], [place] [facility] [address] [place] [address] * (ABNORMAL) S-TSH (Thyroid-Stimulating Hormone - Sensitive) (05/28/2021 6:30 AM CDT) TSH, Sensitive 6.7(H) 0.3 - 4.2 mIU/L 05/28/2021 7:22 AM CDT NPR[facility] Blood (Blood, Venous) 05/28/2021 6:30 AM CDT 05/28/2021 6:51 AM CDT us Soto Grider M.D. LAB BLOOD ADD-ON Final Result Performing Organization Address City/[facility]/ZIP Co de Phone Number [facility] [address] [place] [address], [place] NPRG [place] [address] [place] [address] from Last 3 Months or Most Recently Relevant to Health Maintenance Insurance [facility] Advance Directives For more information, please contact: [phone] * DNR/DNI (Latest Code Status on File) [...] Answer Comments Full Code: Discussed Care Teams Homebound Teacher Relationship Specialty Start Date End Date Elsewhere, Pcp PCP - General 06/08/21
== END 2024-09-01 15:37 | disposition home or self-care (01) ==
LOC: NPINS 15:36
PROVIDERS: PCP Family Medicine; Visit Provider Nurse Practitioner Gerontology
DX: R44.3 Hallucinations, unspecified (principal)
CPT/HCPCS: 81001; 87086

== ENCOUNTER 2024-10-10 16:03 | Outpatient (REF) | payer BC, SELFPAY ==
[2024-10-10 23:09] LABS: Appearance Urine Cloudy (Clear)
--- OUTSIDE RECORDS SUMMARY | 2024-10-11 00:19 | XMS_ITS | Patient Health Record ---
Author Organization [facility] Address [address] [place] [address] [place] [address] Care Team Providers Care Assurance Engineer Name Role Phone FRANCOISE BRO Primary Care Provider Dilip ENRIQUE Hamilton Unavailable [phone] Reason For Referral No Information Medications Medication [...] W/U Status Risk Notes Problem Chronic pain (71942607) Other chronic pain (G89.29) Active confirmed Problem Pain of left knee joint (finding) (789899704735265) Pain in left knee (M25.562) Active confirmed Problem Degeneration of lumbar intervertebral disc (86585325) Other intervertebral disc degeneration, lumbar region (M51.36) Active confirmed Problem Low back pain (924123854) Low back pain (M54.5) Active confirmed Problem Failed back syndrome (05449797) 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 Problem Pain of right hip joint (818324658886162) Pain of right hip joint (M25.551) Active confirmed Plan Of Treatment No Information Insurance Providers Payer Name Payer Address Payer Phone Subscriber Number Group Number Insured Name Patient Relationship to Insured Coverage Start Date Coverage End Date [facility] [place] [employer]) [address] [address] [place] [phone] [id number] JOSEPH ARMSTRONG Self - patient is the insured 2015 Medical (General) History Medical History History ICD Code hypertension, benign Surgical History Surgery Date(Month/Year) hysterectomy right hip replacement x3
--- OUTSIDE RECORDS SUMMARY | 2024-10-11 00:19 | XMS_ITS | Clinical Summary ---
Author Organization [facility] Address [address] [place] [address] Care Team Providers Care Business Reporting Developer Name Role Phone Elsewhere, Pcp Primary Care Provider Unavailabl e Source Comments Patient records contain information from all sites at [facility]. For routine questions regarding patient records, call [phone] during business hours, M-F 8:00 AM - 5:00 PM Central Time. 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 eGFR Non-Black/Afric an Malian 75 >=60 mL/min/BSA 06/05/2021 6:53 AM CDT [...] M.D. LAB BLOOD ADD-ON Final R esult [facility] [address] [place] [address], [facility] NPRG [facility] [address] [place] [address] * (ABNORMAL) S-TSH (Thyroid-Stimulating Hormone - Sensitive) (05/28/2021 6:30 AM CDT) TSH, Sensitive 6.7(H) 0.3 - 4.2 mIU/L 05/28/2021 7:22 AM CDT NPRG Blood (Blood, Venous) 05/28/2021 6:30 AM CDT 05/28/2021 6:51 AM CDT us Soto Grider M.D. LAB BLOOD ADD-ON Final Result Performing Organization Address City/[facility]/ZIP Co de Phone Number [facility] [address] [place] [address], [facility] NPRG [place] [address] [place] [address] from Last 3 Months or Most Recently Relevant to Health Maintenance Insurance [facility] Advance Directives For more information, please contact: [phone] * DNR/DNI (Latest Code Status on File) [...] Answer Comments Full Code: Discussed Care Teams Business Reporting Developer Relationship Specialty Start Date End Date Elsewhere, Pcp PCP - General 06/08/21
--- OUTSIDE RECORDS SUMMARY | 2024-10-11 00:19 | XMS_ITS | Patient Health Record ---
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 confirmed Problem Other mechanical complication of prosthetic joint implant (996.47) Active confirmed Problem Arthralgia of the pelvic region and thigh (594235395) Pain in joint, pelvic region and thigh (719.45) Active confirmed Problem Shoulder joint pain (582422043) Pain in joint, shoulder region (719.41) Active confirmed Problem Surgical follow-up (676648994) Aftercare following surgery of the musculoskeletal system, NEC (V58.78) Active confirmed Problem Aftercare (756558394) Aftercare following joint replacement (V54.81) Active confirmed Problem Total replacement of hip (95372563) Hip joint replacement by other means (V43.64) Active confirmed Problem Localized osteoarthrosis uncertain if primary OR secondary (75509915) Localized osteoarthrosis not specified whether primary or secondary, shoulder region (715.31) Active confirmed 2 Problem Shoulder stiff (193573998) Stiffness of joint, not elsewhere classified, shoulder region (719.51) Active confirmed Problem 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, not elsewhere classified, 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 confirmed Problem Acquired genu varum (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) Varus deformity, not elsewhere classified, left knee (M21.162) Active confirmed Problem Pain of right knee region (finding) (339266003264835) Pain in right knee (M25.561) Active confirmed Problem Stiffness of right knee (784872397129810) Stiffness of right knee, not elsewhere classified (M25.661) Active confirmed Problem Knee stiff (916952876) Stiffness of left knee, not elsewhere classified (M25.662) Active confirmed Problem Abnormal gait (69653767) Other abnormalities of gait and mobility (R26.89) Active confirmed Problem History of musculoskeletal operation (323243227) Aftercare following joint replacement surgery (Z47.1) Active confirmed Problem Total hip replacement Prosthesis (315620099) Presence of right artificial hip joint (Z96.641) Active confirmed Problem Osteoarthritis of knee (516751540) Primary osteoarthritis of both knees (M17.0) Active confirmed Problem Left knee pain (143308824224965) Left knee pain (M25.562) Active confirmed Plan Of Treatment No Information Insurance Providers Payer Name Payer Address Payer Phone Subscriber Number Group Number Insured Name Patient Relationship to Insured Coverage Start Date Coverage End Date [place] [address] [address] [place] [address] [id number] Holli Rai Self - patient is the [...]
== END 2024-10-10 16:04 | disposition home or self-care (01) ==
LOC: NPINS 16:03
PROVIDERS: PCP Family Medicine; Visit Provider Nurse Practitioner Gerontology
DX: R15.9 Full incontinence of feces (principal)
CPT/HCPCS: 81001; 87086